=== PATIENT | male | born 1955 | race Caucasian/White ===

== ENCOUNTER 2021-01-03 08:12 | Outpatient (REF) | payer OTHER, SELFPAY ==
[2021-01-03 09:18] LABS: Hematocrit 44.6 % (42-52); Hemoglobin 14.6 g/dl (14.0-18.0); Mean Corpuscular HGB Conc 32.7 g/dl (31.0-36.0); Mean Corpuscular Hemoglobin 30.7 pg (27.0-33.0); Mean Corpuscular Volume 93.7 fL (80-98); Mean Platelet Volume 10.5 fL (9.4-12.4); Platelet Count 248 X10*3/uL (160-400); Red Blood Count 4.76 X10*6/uL (4.60-5.80); Red Cell Distribution Width 12.8 % (11.0-16.0); White Blood Count 5.1 X10*3/uL (4.8-10.8)
[2021-01-03 09:37] LABS: Alanine Aminotransferase 22 U/L (0-40); Alkaline Phosphatase 69 U/L (39-117); Anion Gap 9 (12-20); Aspartate Amino Transferase 24 U/L (5-37); Bilirubin Direct 0.3 mg/dL (0.0-0.5); Bilirubin Total 0.8 mg/dL (0.0-1.0); Blood Urea Nitrogen 30 mg/dL (9-16); Carbon Dioxide 31 mmol/L (22-29); Chloride 104 mmol/L (96-108); Cholesterol 175 mg/dL; Estimated Glomerular Filt Rate > 60; Glucose Random 100 mg/dL (60-115); HDL Cholesterol 81 mg/dL; LDL Cholesterol Calculated 85 mg/dl; Potassium 4.6 mmol/L (3.3-5.1); Sodium 139 mmol/L (135-145); Total Protein 6.1 g/dL (6.5-8.0); Triglycerides 48 mg/dL
== END 2021-01-03 08:13 | disposition home or self-care (01) ==
LOC: HO.LAB 08:12
PROVIDERS: PCP Internal Medicine; Visit Provider Internal Medicine
DX: E78.00 Pure hypercholesterolemia, unspecified (principal)
CPT/HCPCS: 36415; 80048; 80061; 80076; 84443; 85027

== ENCOUNTER 2021-05-28 07:06 | Outpatient (REF) | payer OTHER, SELFPAY ==
[2021-05-28 07:35] LABS: Hematocrit 46.5 % (42.0-52.0); Mean Corpuscular HGB Conc 32.3 g/dl (31.0-36.0); Mean Corpuscular Hemoglobin 30.1 pg (27.0-33.0); Mean Corpuscular Volume 93.4 fL (80.0-98.0); Mean Platelet Volume 10.3 fL (9.4-12.4); Platelet Count 269 X10*3/uL (160-400); Red Blood Count 4.98 X10*6/uL (4.60-5.80); Red Cell Distribution Width 13.2 % (11.0-16.0); White Blood Count 5.1 X10*3/uL (4.8-10.8)
[2021-05-28 07:58] LABS: Alanine Aminotransferase 24 U/L (0-40); Albumin Level 3.9 g/dL (3.5-5.0); Alkaline Phosphatase 64 U/L (39-117); Anion Gap 10 (12-20); Aspartate Amino Transferase 26 U/L (5-37); Bilirubin Direct 0.3 mg/dL (0.0-0.5); Bilirubin Total 0.6 mg/dL (0.0-1.0); Blood Urea Nitrogen 22 mg/dL (9-16); Calcium 9.7 mg/dL (8.4-10.2); Carbon Dioxide 32 mmol/L (22-29); Chloride 104 mmol/L (96-108); Cholesterol 191 mg/dL; Estimated Glomerular Filt Rate > 60; Glucose Random 108 mg/dL (60-115); HDL Cholesterol 79 mg/dL; LDL Cholesterol Calculated 103 mg/dl; Potassium 5.3 mmol/L (3.3-5.1); Sodium 141 mmol/L (135-145); Total Protein 6.3 g/dL (6.5-8.0); Triglycerides 48 mg/dL
[2021-05-28 08:18] LABS: Thyroid Stimulating Hormone 1.13 uIU/mL (0.32-4.0)
== END 2021-05-28 07:07 | disposition home or self-care (01) ==
LOC: HO.LAB 07:06
PROVIDERS: PCP Internal Medicine; Visit Provider Internal Medicine
DX: E78.00 Pure hypercholesterolemia, unspecified (principal); K21.9 Gastro-esophageal reflux disease without esophagitis
CPT/HCPCS: 36415; 80048; 80061; 80076; 84443; 85027

== ENCOUNTER 2021-10-03 07:13 | Outpatient (REF) | payer OTHER, SELFPAY ==
--- NOTE | ~2021-10-03 | XR_ITS ---
EXAMINATION: XR PELVIS CLINICAL INFORMATION: Hip pain. COMPARISON: None TECHNIQUE: AP view of the pelvis. FINDINGS: The bones and soft tissues are normal. No fracture. Sacroiliac and hip joints are normal. A tiny accessory ossification center seen lateral to the left acetabular roof. Pubic symphysis is normal. There are pelvic phleboliths. No abnormal soft tissue calcifications. XR/XR pelvis 1-2V IMPRESSION: Normal pelvis.
== END 2021-10-03 07:14 | disposition home or self-care (01) ==
LOC: HO.HOSX 07:13
PROVIDERS: Visit Provider Orthopaedic Surgery
DX: M70.70 Other bursitis of hip, unspecified hip (principal)
CPT/HCPCS: 72170

== ENCOUNTER 2021-10-29 07:19 | Outpatient (REF) | payer OTHER, SELFPAY ==
[2021-10-29 08:14] LABS: Hematocrit 46.9 % (42.0-52.0); Hemoglobin 15.3 g/dl (14.0-18.0); Mean Corpuscular HGB Conc 32.6 g/dl (31.0-36.0); Mean Corpuscular Hemoglobin 30.5 pg (27.0-33.0); Mean Corpuscular Volume 93.6 fL (80.0-98.0); Mean Platelet Volume 10.2 fL (9.4-12.4); Platelet Count 267 X10*3/uL (160-400); Red Blood Count 5.01 X10*6/uL (4.60-5.80); White Blood Count 4.6 X10*3/uL (4.8-10.8)
[2021-10-29 09:14] LABS: Alanine Aminotransferase 38 U/L (0-40); Albumin Level 4.3 g/dL (3.5-5.0); Alkaline Phosphatase 65 U/L (39-117); Anion Gap 12 (12-20); Aspartate Amino Transferase 51 U/L (5-37); Bilirubin Direct 0.5 mg/dL (0.0-0.5); Bilirubin Total 1.2 mg/dL (0.0-1.0); Blood Urea Nitrogen 23 mg/dL (9-16); Calcium 9.7 mg/dL (8.4-10.2); Carbon Dioxide 30 mmol/L (22-29); Chloride 103 mmol/L (96-108); Cholesterol 188 mg/dL; Estimated Glomerular Filt Rate > 60; Glucose Random 100 mg/dL (60-115); HDL Cholesterol 88 mg/dL; LDL Cholesterol Calculated 94 mg/dl; Potassium 4.7 mmol/L (3.3-5.1); Sodium 140 mmol/L (135-145); Total Protein 6.7 g/dL (6.5-8.0); Triglycerides 34 mg/dL
[2021-10-29 09:17] LABS: Thyroid Stimulating Hormone 0.53 uIU/mL (0.32-4.0)
== END 2021-10-29 07:20 | disposition home or self-care (01) ==
LOC: HO.LAB 07:19
PROVIDERS: PCP Internal Medicine; Visit Provider Internal Medicine
DX: E78.00 Pure hypercholesterolemia, unspecified (principal); K21.9 Gastro-esophageal reflux disease without esophagitis; K22.70 Barrett's esophagus without dysplasia
CPT/HCPCS: 36415; 80048; 80061; 80076; 84443; 85027

== ENCOUNTER 2021-11-30 07:27 | Day surgery (SDC) | payer OTHER, SELFPAY ==
--- NOTE | 2021-11-28 12:07 | P.CONAN_ITS ---
Documented by User: Antonieta Lewis NP 11/28/21 12:08 HPI - Anesthesia Eval Consult details Narrative: 66yo M for Upper Endoscopy PMFSH Active Problems Active Problems: All Active Problems (Updated 10/03/21 @ 15:16 by Brendon Lemus) Osteoarthritis of right hip (Acute) Ischial bursitis (Acute) GERD (gastroesophageal reflux disease) (Acute) Huitron's esophagus (Acute) Hypercholesterolemia (Acute) Past Medical History Medical History Huitron's esophagus GERD (gastroesophageal reflux disease) Hypercholesterolemia Family History Family History Mother No problems noted. Father No problems noted. 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 Cognitive needs: No Hearing needs: No Vision needs: Yes (glasses) Meds Allergies Allergy/AdvReac Type Severity Reaction Status Date / Time No Known Allergies Allergy Verified 10/03/21 14:54 Home Medications Medication Instructions Recorded Confirmed Last Taken Type multivitamin 1 tab PO DAILY 05/24/21 Unknown History Exam Exam Date and Time: November 28, 2021 1207 Pertinent Lab Results Pertinent Lab Results: Laboratory Tests 10/29/21 10/29/21 07:29 07:29 WBC 4.6 L Hgb 15.3 Hct 46.9 Plt Count 267 Sodium 140 Potassium 4.7 Chloride 103 Carbon Dioxide 30 H BUN 23 H Creatinine 1.12 Assessment and Plan Assessment Anesthesia Assessment: Chart Reviewed Documented by User: Nicole Petersen MD 11/30/21 09:00 [facility] Past Medical History Medical History Huitron's esophagus GERD (gastroesophageal reflux disease) Hypercholesterolemia Functional capacity: independent ambulation Family History Family History Mother No problems noted. Father No problems noted. Family history of problems with anesthesia: No Surgical History Surgical History History of esophagogastroduodenoscopy (EGD) History of tonsillectomy Hx of colonoscopy History of Problems with Anesthesia: No Social History Social History Housing: House Alcohol intake: current Alcohol intake frequency: 0-2 drinks per day Patient Tobacco Use Status: Never used Tobacco e-Cigarette/Vaping Use: Never Used Second Hand Smoke Exposure: Yes Use of substances other than those prescribed or required for medical reasons: No Are you DNR?: No Advance Directives: No Advance Directives Information Provided: Yes service: Yes Current occupational status: employed 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 Cognitive needs: No Hearing needs: No Vision needs: Yes (glasses) Meds Allergies Allergy/AdvReac Type Severity Reaction Status Date / Time No Known Allergies Allergy Verified 10/03/21 14:54 Home Medications Medication Instructions Recorded Confirmed Last Taken Type multivitamin 1 tab PO DAILY 05/24/21 Unknown History Exam Airway Mallampati Class: II TM Dist: >3cm Neck ROM: Full Heart: RRR Lungs: CTA Assessment and Plan Final Anesthetic Review Family History of Problems with Anesthesia: No History of Problems with Anesthesia: No ASA Class: II Final Preanesthetic Review: No Changes in Pt Med Stat, Meds/Allgs Chart Reviewed, Consent Obtained/Reviewed and Anes Risks/Benef Reviewed Patient Risk: Low Anesthetic Plan Anesthetic Plan: MAC: Disposition: Standard PACU
[2021-11-30 08:03] VITALS: BMI 19.8
[2021-11-30 08:07] VITALS: BP 124/74; PULSE 57; RESP 18; TEMP 36.2; O2SAT 98
[2021-11-30] MEDS: Lactated Ringers 1,000 ML 100 ML IVCONT (08:09)
[2021-11-30 09:10] VITALS: BP 99/63; PULSE 62; RESP 16; TEMP 36.2; O2SAT 99
--- NOTE | 2021-11-30 09:15 | PM.OP ---
Brief Operative Note Date of Service: 11/30/21 Pre-op diagnosis: Huitron's esophagus Post-op diagnosis: other (Same, small hiatal hernia) Procedure: EGD with biopsies Surgeon: Joseph Lopez Anesthesia: MAC Was an Hydrometeorology Teacher used for this Procedure?: No Estimated blood loss (mL): 2.0 Pathology: other (A. EG Junction at 40cm) Condition: stable Disposition: PACU
[2021-11-30 09:25] VITALS: BP 108/69; PULSE 57; RESP 16; TEMP 36.3; O2SAT 98
--- NOTE | 2021-11-30 09:51 | HO.POSTANES ---
Post Anesthesia Evaluation Post Anesthesia Evaluation Vital Signs: Vital Signs Temp Pulse Resp BP Pulse Ox O2 Del Method 11/30/21 09:25 97.3 F 57 16 108/69 98 Room Air 11/30/21 09:10 97.2 F 62 16 99/63 99 Room Air 11/30/21 08:07 97.2 F 57 18 124/74 98 Room Air Anesthesia: Monitored Mental Status: Awake Pain Control: Satisfactory Nausea/Vomiting: None Hydration: Adequate Anesthesia-Related Issues: No Anes. Related Issues
--- NOTE | 2021-11-30 20:58 | OP_ITS ---
SURGEON: Joseph Lopez MD INDICATIONS: The patient presents for evaluation of history of Huitron's esophagus. Full consent has been obtained from him for this, including risks of bleeding and perforation. PREOPERATIVE DIAGNOSIS: History of Huitron's esophagus. POSTOPERATIVE DIAGNOSIS: PROCEDURE PERFORMED: Esophagogastroduodenoscopy with biopsies. ESTIMATED BLOOD LOSS: COMPLICATIONS: ANESTHESIA: Monitored anesthesia care. ASSISTANTS: SPECIMENS: POSTOPERATIVE DIAGNOSES: History of Huitron's esophagus, minimal hiatal hernia. DESCRIPTION OF PROCEDURE: The patient was placed in the left lateral decubitus position. The Olympus video gastroscope was passed in the posterior oropharynx and upper esophagus under direct vision. The scope was passed slowly into the distal esophagus. The gastroesophageal junction appeared at 40 cm. There was some very minimal irregularity with possibly small areas of Huitron's mucosa. There was no esophagitis nor mass. The scope entered into the stomach. There was a minimal hiatal hernia. The scope was advanced to the pylorus and the duodenum was cannulated to the descending portion. The duodenum including the bulb appeared normal without mass or ulceration. The scope was withdrawn back in the stomach. The gastric antrum and body appeared normal with good peristalsis. The scope was retroflexed visualizing the proximal stomach carefully, which appeared normal, without any sign of mass or ulceration. The scope was straightened and withdrawn back into the esophagus. Biopsies were obtained at the EG junction at 40 cm. Proximal to this, the esophageal mucosa appeared normal. The scope was withdrawn from the patient. He tolerated the procedure well and was returned to the recovery area in stable condition. IMPRESSION: Minimal hiatal hernia, history of Huitron's esophagus. PLAN: The results of the biopsies will be checked. I would recommend a repeat upper endoscopy in 3 years. At this point he is doing well off his omeprazole and I advised him that he could remain off it. He can just use that or any acid suppression on a p.r.n. basis. However, I did advise him that if the acid reflux becomes more frequent, he could then simply resume the omeprazole. He will be due for a followup screening colonoscopy in 2023 as well. MD ELBA Guthrie/LINDA / [id number] ROHINI
== END 2021-11-30 09:49 | disposition home or self-care (01) ==
PROVIDERS: PCP Internal Medicine; Visit Provider Internal Medicine
PROC: 0DJ08ZZ Inspection of Upper Intestinal Tract, Via Natural or Artificial Opening Endoscopic (ICD-10-PCS; CPT 43235; principal; 2021-11-30 08:30)
DX: K22.70 Barrett's esophagus without dysplasia (principal); K21.9 Gastro-esophageal reflux disease without esophagitis; K44.9 Diaphragmatic hernia without obstruction or gangrene; E78.00 Pure hypercholesterolemia, unspecified; Z79.899 Other long term (current) drug therapy
CPT/HCPCS: 43239; 88305

== ENCOUNTER 2022-07-08 12:19 | Emergency (ER) | payer MEDICARE, OTHER, SELFPAY ==
--- NOTE | ~2022-07-08 | XR_ITS ---
EXAMINATION: XR CHEST CLINICAL INFORMATION: Left-sided rib pain COMPARISON: X-ray 03/12/2013 TECHNIQUE: 2 views of the chest were obtained. FINDINGS: The cardiomediastinal silhouette is within normal limits. The lungs are well expanded. There is no focal consolidation, edema, or effusion. No pneumothorax. No acute displaced rib fractures identified. Thoracic spine degeneration. XR/XR chest 2V IMPRESSION: No evidence of acute cardiopulmonary process.
[2022-07-08 12:25] VITALS: BP 140/81; PULSE 67; RESP 18; TEMP 36.4; O2SAT 99; BMI 19.8
--- NOTE | 2022-07-08 12:26 | ED.GENADULT ---
HPI - General Adult General Chief complaint: General Medical <SUDHA Layton - Last Filed: 07/08/22 12:26> Stated complaint: Pain in left side of ribs <SUDHA Layton - Last Filed: 07/08/22 12:26> Time Seen by Provider: 07/08/22 13:33 <SUDHA Layton - Last Filed: 07/08/22 12:26> Source: patient <Ebonie Rebolledo KE Loo - Last Filed: 07/08/22 14:45> Mode of arrival: ambulatory <Ebonie Loo CNP - Last Filed: 07/08/22 14:45> Limitations: no limitations <Ebonie Loo CNP - Last Filed: 07/08/22 14:45> History of Present Illness HPI narrative: Patient is a 67-year-old male who presents to emergency department for evaluation of rib pain. 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 Reports pain to be localized to the left lower/anterior rib region described as aching in nature, and has tenderness upon palpation to light touch.. It is made worse with deep breathing and particular movement. He denies any recent URI symptoms or sick contacts. Denies upper/anterior chest pain, shortness of breath, difficulty breathing, abdominal pain, nausea, vomiting, diarrhea, constipation flank pain. Denies personal history of DVT/PE, lower extremity redness swelling, recent surgery or immobilization. <Ebonie Loo CNP - Last Filed: 07/08/22 14:45> Related Data Home medications: Home Medications Medication Instructions Recorded Confirmed multivitamin 1 tab PO DAILY 05/24/21 Previous Rx's Medication Instructions Recorded simvastatin 40 mg tablet 40 mg PO DAILY #90 tabs 11/17/21 omeprazole 20 mg capsule,delayed 20 mg PO DAILY #90 caps 01/14/22 release <SUDHA Layton - Last Filed: 07/08/22 12:26> Allergies/adverse reactions: Allergies Allergy/AdvReac Type Severity Reaction Status Date / Time No Known Allergies Allergy Verified 10/03/21 14:54 <SUDHA Layton - Last Filed: 07/08/22 12:26> Review of Systems Review of Systems: Yes all other systems are reviewed and are negative <Ebonie Loo CNP - Last Filed: 07/08/22 14:45> [facility] Past Medical History Attestation statement: The following information was validated with the patient. <Ebonie Loo CNP - Last Filed: 07/08/22 14:45> Source: old records reviewed <Ebonie Loo CNP - Last Filed: 07/08/22 14:45> Medical History: Medical History Huitron's esophagus GERD (gastroesophageal reflux disease) Hypercholesterolemia <SUDHA Layton - Last Filed: 07/08/22 12:26> Surgical History: Surgical History History of esophagogastroduodenoscopy (EGD) History of tonsillectomy Hx of colonoscopy <SUDHA Layton - Last Filed: 07/08/22 12:26> Family History Family History: Family History Mother No problems noted. Father No problems noted. 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 Cognitive needs: No Hearing needs: No Vision needs: Yes (glasses) <SUDHA Layton - Last Filed: 07/08/22 12:26> Physical Exam ED Vital Signs: Vital Signs - 24 hr 07/08/22 12:25 Temperature 97.5 F Pulse Rate 67 Respiratory Rate 18 Blood Pressure 140/81 H Pulse Oximetry 99 Oxygen Delivery Method Room Air BMI result Body Mass Index 19.8 <SUDHA Layton - Last Filed: 07/08/22 12:26> Vital Signs - 24 hr 07/08/22 12:25 Temperature 97.5 F Pulse Rate 67 Respiratory Rate 18 Blood Pressure 140/81 H Pulse Oximetry 99 Oxygen Delivery Method Room Air BMI result Body Mass Index 19.8 <Ebonie Loo CNP - Last Filed: 07/08/22 14:45> Course Course Course Narrative: RME performed by Tresa Kent PA-C. Patient is a 67 year old male presenting to the emergency department with left sided rib pain. Patient states that this pain is worse with deep breathing and movement. Labs, EKG, and imaging ordered. Patient placed back in the waiting room pending results and room availability. <SUDHA Layton - Last Filed: 07/08/22 12:26> Reevaluation(s) Reevaluation #1: CBC is overall unremarkable. CMP is overall unremarkable, elevated BUN though this is consistent with baseline. Troponin <3.5. EKG revealing normal sinus rhythm, ventricular rate of 61, QTC 428, normal P wave, normal QRS complex, no ST elevation, no ST depression, no T-wave inversion, no prior EKGs available for comparison. At this time does not appear consistent with ACS. I have a lower suspicion for pulmonary embolism based history and physical examination. COVID-19 testing is negative. Chest x-ray reveals no acute cardiopulmonary process. At this time, symptoms appear most consistent muscular strain of the chest reviewed these findings patient, discussed plan of care for discharge home with Lidoderm patch, use anti-inflammatory, and outpatient follow-up primary care provider within the next 3 days. We reviewed worrisome signs and symptoms warrant re-evaluation the emergency department. All questions were answered. Stable for discharge. <Ebonie Loo CNP - Last Filed: 07/08/22 14:45> Time: 14:45 <Ebonie Loo CNP - Last Filed: 07/08/22 14:45> Medical Decision Making Medical Decision Making MDM Narrative: Patient is a 67-year-old male with past medical history of Huitron's esophagus, GERD, hypercholesterolemia who presents emergency department for evaluation of left lateral chest wall pain. At the time of my examination he is overall well appearing. Nontoxic. Vitals are stable without tachycardia, tachypnea, or hypoxia. At this time I have a low suspicion for ACS/PE/pneumonia. However given age and symptoms, Will obtain CBC to evaluate for leukocytosis/ anemia, CMP and lipase to evaluate for abnormal electrolytes /abnormal renal function/ abnormal hepatic/biliary function, EKG and troponin to evaluate for ischemia/ACS. Chest x-ray to evaluate for consolidation/ infiltrate/ mass/ pulmonary congestion. <Ebonie Loo CNP - Last Filed: 07/08/22 14:45> Differential Diagnosis Differential Diagnoses: The differential diagnosis associated with the presentation includes (ACS, PE, pneumonia, costochondritis, gastritis) <Ebonie Loo CNP - Last Filed: 07/08/22 14:45> Lab Data MDM Lab Attestation statement: I reviewed the patient's lab results. <Ebonie Loo CNP - Last Filed: 07/08/22 14:45> Result Diagrams: 07/08/22 12:49 07/08/22 12:49 <SUDHA Layton - Last Filed: 07/08/22 12:26> Labs: Lab Results 07/08/22 07/08/22 07/08/22 Range/Units 12:45 12:49 12:49 WBC 6.6 (4.8-10.8) X10*3/uL RBC 4.69 (4.60-5.80) X10*6/uL Hgb 14.2 (14.0-18.0) g/dl Hct 43.6 (42.0-52.0) % MCV 93.0 (80.0-98.0) fL MCH 30.3 (27.0-33.0) pg MCHC 32.6 (31.0-36.0) g/dl RDW 13.2 (11.0-16.0) % Plt Count 244 (160-400) X10*3/uL MPV 9.7 (9.4-12.4) fL Immature Gran % (Auto) 0.3 (0.0-0.4) % Neut % (Auto) 74.5 H (45-73) % Lymph % (Auto) 15.1 L (20-40) % [place] % (Auto) 8.1 (2-11) % Eos % (Auto) 1.5 (0-4) % Baso % (Auto) 0.5 (0-2) % Lymph # (Auto) 1.0 L (1.2-4.9) X10*3/uL [place] # (Auto) 0.5 (0.1-1.2) X10*3/uL Eos # (Auto) 0.1 (0.0-0.4) X10*3/uL Baso # (Auto) 0.0 (0.0-0.2) X10*3/uL Abs Immat Gran (auto) 0.02 (0.00-0.03) X10*3/uL Absolute Neuts (auto) 4.9 (2.0-8.3) x10*3/uL Absolute Nucleated RBC 0.000 (0.0-0.012) X10*3/uL Nucleated RBC % (auto) 0.0 (0.0-0.2) /100WBC Sodium 139 (135-145) mmol/L Potassium 4.7 (3.3-5.1) mmol/L Chloride 105 (96-108) mmol/L Carbon Dioxide 29 (22-29) mmol/L Anion Gap 10 L (12-20) BUN 27 H (9-16) mg/dL Creatinine 1.04 (0.5-1.4) mg/dL Estim Creat Clear Calc 68.1 Estimated GFR > 60 Random Glucose 120 H (60-115) mg/dL Calcium 8.9 D (8.4-10.2) mg/dL Magnesium 1.9 (1.6-2.6) mg/dL Total Bilirubin 0.8 (0.0-1.0) mg/dL AST 25 (5-37) U/L ALT 22 (0-40) U/L Alkaline Phosphatase 58 (39-117) U/L Troponin I High Sens (<3.5-35.0) ng/L B-Natriuretic Peptide (<100) pg/mL Total Protein 5.9 L (6.5-8.0) g/dL Albumin 3.9 (3.5-5.0) g/dL COVID-19 (SILVIA) Negative (Negative) COVID-19 Clin Com See Note 07/08/22 07/08/22 Range/Units 12:49 12:49 WBC (4.8-10.8) X10*3/uL RBC (4.60-5.80) X10*6/uL Hgb (14.0-18.0) g/dl Hct (42.0-52.0) % MCV (80.0-98.0) fL MCH (27.0-33.0) pg MCHC (31.0-36.0) g/dl RDW (11.0-16.0) % Plt Count (160-400) X10*3/uL MPV (9.4-12.4) fL Immature Gran % (Auto) (0.0-0.4) % Neut % (Auto) (45-73) % Lymph % (Auto) (20-40) % [place] % (Auto) (2-11) % Eos % (Auto) (0-4) % Baso % (Auto) (0-2) % Lymph # (Auto) (1.2-4.9) X10*3/uL [place] # (Auto) (0.1-1.2) X10*3/uL Eos # (Auto) (0.0-0.4) X10*3/uL Baso # (Auto) (0.0-0.2) X10*3/uL Abs Immat Gran (auto) (0.00-0.03) X10*3/uL Absolute Neuts (auto) (2.0-8.3) x10*3/uL Absolute Nucleated RBC (0.0-0.012) X10*3/uL Nucleated RBC % (auto) (0.0-0.2) /100WBC Sodium (135-145) mmol/L Potassium (3.3-5.1) mmol/L Chloride (96-108) mmol/L Carbon Dioxide (22-29) mmol/L Anion Gap (12-20) BUN (9-16) mg/dL Creatinine (0.5-1.4) mg/dL Estim Creat Clear Calc Estimated GFR Random Glucose (60-115) mg/dL Calcium (8.4-10.2) mg/dL Magnesium (1.6-2.6) mg/dL Total Bilirubin (0.0-1.0) mg/dL AST (5-37) U/L ALT (0-40) U/L Alkaline Phosphatase (39-117) U/L Troponin I High Sens < 3.5 (<3.5-35.0) ng/L B-Natriuretic Peptide 31 (<100) pg/mL Total Protein (6.5-8.0) g/dL Albumin (3.5-5.0) g/dL COVID-19 (SILVIA) (Negative) COVID-19 Clin Com <SUDHA Layton - Last Filed: 07/08/22 12:26> Lab Results 07/08/22 07/08/22 07/08/22 Range/Units 12:45 12:49 12:49 WBC 6.6 (4.8-10.8) X10*3/uL RBC 4.69 (4.60-5.80) X10*6/uL Hgb 14.2 (14.0-18.0) g/dl Hct 43.6 (42.0-52.0) % MCV 93.0 (80.0-98.0) fL MCH 30.3 (27.0-33.0) pg MCHC 32.6 (31.0-36.0) g/dl RDW 13.2 (11.0-16.0) % Plt Count 244 (160-400) X10*3/uL MPV 9.7 (9.4-12.4) fL Immature Gran % (Auto) 0.3 (0.0-0.4) % Neut % (Auto) 74.5 H (45-73) % Lymph % (Auto) 15.1 L (20-40) % [place] % (Auto) 8.1 (2-11) % Eos % (Auto) 1.5 (0-4) % Baso % (Auto) 0.5 (0-2) % Lymph # (Auto) 1.0 L (1.2-4.9) X10*3/uL [place] # (Auto) 0.5 (0.1-1.2) X10*3/uL Eos # (Auto) 0.1 (0.0-0.4) X10*3/uL Baso # (Auto) 0.0 (0.0-0.2) X10*3/uL Abs Immat Gran (auto) 0.02 (0.00-0.03) X10*3/uL Absolute Neuts (auto) 4.9 (2.0-8.3) x10*3/uL Absolute Nucleated RBC 0.000 (0.0-0.012) X10*3/uL Nucleated RBC % (auto) 0.0 (0.0-0.2) /100WBC Sodium 139 (135-145) mmol/L Potassium 4.7 (3.3-5.1) mmol/L Chloride 105 (96-108) mmol/L Carbon Dioxide 29 (22-29) mmol/L Anion Gap 10 L (12-20) BUN 27 H (9-16) mg/dL Creatinine 1.04 (0.5-1.4) mg/dL Estim Creat Clear Calc 68.1 Estimated GFR > 60 Random Glucose 120 H (60-115) mg/dL Calcium 8.9 D (8.4-10.2) mg/dL Magnesium 1.9 (1.6-2.6) mg/dL Total Bilirubin 0.8 (0.0-1.0) mg/dL AST 25 (5-37) U/L ALT 22 (0-40) U/L Alkaline Phosphatase 58 (39-117) U/L Troponin I High Sens (<3.5-35.0) ng/L B-Natriuretic Peptide (<100) pg/mL Total Protein 5.9 L (6.5-8.0) g/dL Albumin 3.9 (3.5-5.0) g/dL COVID-19 (SILVIA) Negative (Negative) COVID-19 Clin Com See Note 07/08/22 07/08/22 Range/Units 12:49 12:49 WBC (4.8-10.8) X10*3/uL RBC (4.60-5.80) X10*6/uL Hgb (14.0-18.0) g/dl Hct (42.0-52.0) % MCV (80.0-98.0) fL MCH (27.0-33.0) pg MCHC (31.0-36.0) g/dl RDW (11.0-16.0) % Plt Count (160-400) X10*3/uL MPV (9.4-12.4) fL Immature Gran % (Auto) (0.0-0.4) % Neut % (Auto) (45-73) % Lymph % (Auto) (20-40) % [place] % (Auto) (2-11) % Eos % (Auto) (0-4) % Baso % (Auto) (0-2) % Lymph # (Auto) (1.2-4.9) X10*3/uL [place] # (Auto) (0.1-1.2) X10*3/uL Eos # (Auto) (0.0-0.4) X10*3/uL Baso # (Auto) (0.0-0.2) X10*3/uL Abs Immat Gran (auto) (0.00-0.03) X10*3/uL Absolute Neuts (auto) (2.0-8.3) x10*3/uL Absolute Nucleated RBC (0.0-0.012) X10*3/uL Nucleated RBC % (auto) (0.0-0.2) /100WBC Sodium (135-145) mmol/L Potassium (3.3-5.1) mmol/L Chloride (96-108) mmol/L Carbon Dioxide (22-29) mmol/L Anion Gap (12-20) BUN (9-16) mg/dL Creatinine (0.5-1.4) mg/dL Estim Creat Clear Calc Estimated GFR Random Glucose (60-115) mg/dL Calcium (8.4-10.2) mg/dL Magnesium (1.6-2.6) mg/dL Total Bilirubin (0.0-1.0) mg/dL AST (5-37) U/L ALT (0-40) U/L Alkaline Phosphatase (39-117) U/L Troponin I High Sens < 3.5 (<3.5-35.0) ng/L B-Natriuretic Peptide 31 (<100) pg/mL Total Protein (6.5-8.0) g/dL Albumin (3.5-5.0) g/dL COVID-19 (SILVIA) (Negative) COVID-19 Clin Com <Ebonie Loo CNP - Last Filed: 07/08/22 14:45> Independent Interpretation I performed an independent interpretation of an: Plain X-Ray (I have personally interpreted x-ray imaging and agree with radiologist impression) <Ebonie Loo CNP - Last Filed: 07/08/22 14:45> Radiology Impression Discussion of test interpretation with radiology: I have reviewed the radiologist's reading. <Ebonie Loo CNP - Last Filed: 07/08/22 14:45> Radiologist Impression: XR/XR chest 2V IMPRESSION: No evidence of acute cardiopulmonary process. <Ebonie Loo CNP - Last Filed: 07/08/22 14:45> Discharge Plan Discharge Clinical Impression: Acute costochondritis <SUDHA Layton - Last Filed: 07/08/22 12:26> Patient Disposition: Home, Self-Care <SUDHA Layton - Last Filed: 07/08/22 12:26> Instructions: Costochondritis (ED), Thoracic Pain (ED) <SUDHA Layton - Last Filed: 07/08/22 12:26> Additional Instructions: As discussed, please be sure to rest over the next few days. Apply ice/heat to the area for 10-15 minutes 3-4 times daily. A prescription for Lidoderm patches were sent to your pharmacy, UA places over the area of most pain, however, please be sure not to apply heating pad over the Lidoderm patch You can take ibuprofen 200 mg, 3 tablets (600mg) every 6-8 hours as needed for pain, in addition to Tylenol 500 mg, 2 tablets (1,000mg) every 4-6 hours as needed for pain, but not to exceed 3 doses daily (3,000mg).? Please contact your primary care provider and arrange for a follow-up visit within 3 days. You may return back to the emergency department with any new or worsening symptoms or concerns. <SUDHA Layton - Last Filed: 07/08/22 12:26> Prescriptions: No Action simvastatin 40 mg tablet 40 mg PO DAILY Qty: 90 1RF omeprazole 20 mg capsule,delayed release(DR/EC) 20 mg PO DAILY Qty: 90 1RF multivitamin Tablet 1 tab PO DAILY <SUDHA Layton - Last Filed: 07/08/22 12:26> Referrals: Physician,Unknown J [Primary Care Provider] - <SUDHA Layton - Last Filed: 07/08/22 12:26>
--- NOTE | 2022-07-08 12:27 | ECG_ITS ---
Test Reason : CHEST PAIN Blood Pressure : / mmHG Vent. Rate : 061 BPM Atrial Rate : 061 BPM P-R Int : 178 ms QRS Dur : 094 ms QT Int : 426 ms P-R-T Axes : 067 026 055 degrees QTc Int : 428 ms Normal sinus rhythm Normal ECG No previous ECGs available Referred By: Tresa Kent Electronically Signed By:KASEY MELCHOR
[2022-07-08 12:56] LABS: MANUAL DIFF FLAG NO
[2022-07-08 13:04] LABS: Basophils Percent Auto 0.5 % (0-2); Eosinophils Absolute Auto 0.1 X10*3/uL (0.0-0.4); Eosinophils Percent Auto 1.5 % (0-4); Hematocrit 43.6 % (42.0-52.0); Hemoglobin 14.2 g/dl (14.0-18.0); Imm Gran Abs Auto 0.02 X10*3/uL (0.00-0.03); Imm Gran Pct Auto 0.3 % (0.0-0.4); Lymphocytes Percent Auto 15.1 % (20-40); Mean Corpuscular HGB Conc 32.6 g/dl (31.0-36.0); Mean Corpuscular Hemoglobin 30.3 pg (27.0-33.0); Mean Platelet Volume 9.7 fL (9.4-12.4); Monocytes Absolute Auto 0.5 X10*3/uL (0.1-1.2); Monocytes Percent Auto 8.1 % (2-11); Neutrophils Absolute Auto 4.9 x10*3/uL (2.0-8.3); Neutrophils Percent Auto 74.5 % (45-73); Platelet Count 244 X10*3/uL (160-400); Red Blood Count 4.69 X10*6/uL (4.60-5.80); Red Cell Distribution Width 13.2 % (11.0-16.0); White Blood Count 6.6 X10*3/uL (4.8-10.8)
[2022-07-08 13:17] LABS: Alanine Aminotransferase 22 U/L (0-40); Albumin Level 3.9 g/dL (3.5-5.0); Alkaline Phosphatase 58 U/L (39-117); Anion Gap 10 (12-20); Aspartate Amino Transferase 25 U/L (5-37); Bilirubin Total 0.8 mg/dL (0.0-1.0); Blood Urea Nitrogen 27 mg/dL (9-16); Calcium 8.9 mg/dL (8.4-10.2); Carbon Dioxide 29 mmol/L (22-29); Chloride 105 mmol/L (96-108); Creatinine Clr Calc Pharmacy 68.1; Estimated Glomerular Filt Rate > 60; Glucose Random 120 mg/dL (60-115); Magnesium 1.9 mg/dL (1.6-2.6); Potassium 4.7 mmol/L (3.3-5.1); Sodium 139 mmol/L (135-145); Total Protein 5.9 g/dL (6.5-8.0)
[2022-07-08 13:18] LABS: COVID-19 Test Negative (Negative); IDNOW Serial# 6674DD1D
[2022-07-08 13:23] LABS: B Type Natriuretic Peptide 31 pg/mL (<100)
[2022-07-08 13:24] LABS: Troponin-I High Sensitivity < 3.5 ng/L (<3.5-35.0)
== END 2022-07-08 15:47 | disposition home or self-care (01) ==
PROVIDERS: Physician Assistant Medical; Emergency Provider Emergency Medicine
DX: M94.0 Chondrocostal junction syndrome [Tietze] (principal); Z20.822 Contact with and (suspected) exposure to COVID-19; E78.00 Pure hypercholesterolemia, unspecified; Z79.02 Long term (current) use of antithrombotics/antiplatelets; Z79.899 Other long term (current) drug therapy
CPT/HCPCS: 36415; 71046; 80053; 83735; 83880; 84484; 85025; 87635; 93005; 99283; 99284

== ENCOUNTER 2022-07-29 07:31 | Outpatient (REF) | payer MEDICARE, SELFPAY ==
[2022-07-29 09:23] LABS: Cholesterol 199 mg/dL; HDL Cholesterol 71 mg/dL; LDL Cholesterol Calculated 119 mg/dl; Triglycerides 46 mg/dL
== END 2022-07-29 07:32 | disposition home or self-care (01) ==
LOC: HO.LAB 07:31
PROVIDERS: PCP Internal Medicine; Visit Provider Nurse Practitioner Family
DX: E78.00 Pure hypercholesterolemia, unspecified (principal)
CPT/HCPCS: 36415; 80061

== ENCOUNTER 2022-08-16 08:47 | Outpatient (REF) | payer MEDICARE, OTHER, SELFPAY ==
--- NOTE | ~2022-08-16 | US_ITS ---
EXAMINATION: US ABDOMEN LIMITED CLINICAL INFORMATION: Unspecified abdominal pain. COMPARISON: Ultrasound abdomen complete 06/11/2018. TECHNIQUE: Real-time imaging of the upper abdominal viscera. FINDINGS: PANCREAS: Normal. LEFT KIDNEY: Normal. No hydronephrosis. No renal calculi or focal parenchymal lesions. The kidney measures 9.9 cm in maximum dimension. SPLEEN: Normal. The spleen measures 7.0 cm in maximum dimension. ADDITIONAL FINDINGS: Within the left lower quadrant, a 1.2 x 0.7 x 1.37 reniform lymph node is seen. This shows poor corticomedullary differentiation. US/US abdomen limited IMPRESSION: A mildly enlarged left lower quadrant lymph node is seen. This is a nonspecific finding, which should be managed on a clinical basis. If of continued clinical concern, this can be further evaluated with dedicated CT.
== END 2022-08-16 08:48 | disposition home or self-care (01) ==
LOC: HO.US 08:47
PROVIDERS: PCP Internal Medicine; Visit Provider Nurse Practitioner Family
DX: R10.9 Unspecified abdominal pain (principal)
CPT/HCPCS: 76705

== ENCOUNTER 2022-10-05 13:21 | Outpatient (REF) | payer MEDICARE, SELFPAY ==
[2022-10-05 14:02] LABS: Hematocrit 41.5 % (42.0-52.0); Hemoglobin 13.5 g/dl (14.0-18.0); Mean Corpuscular HGB Conc 32.5 g/dl (31.0-36.0); Mean Corpuscular Hemoglobin 30.1 pg (27.0-33.0); Mean Corpuscular Volume 92.6 fL (80.0-98.0); Mean Platelet Volume 10.2 fL (9.4-12.4); Platelet Count 241 X10*3/uL (160-400); Red Blood Count 4.48 X10*6/uL (4.60-5.80); Red Cell Distribution Width 13.5 % (11.0-16.0); White Blood Count 4.7 X10*3/uL (4.8-10.8)
[2022-10-05 14:53] LABS: Anion Gap 12 (12-20); Blood Urea Nitrogen 20 mg/dL (9-16); Calcium 9.2 mg/dL (8.4-10.2); Carbon Dioxide 29 mmol/L (22-29); Chloride 105 mmol/L (96-108); Estimated Glomerular Filt Rate > 60; Glucose Random 79 mg/dL (60-115); Potassium 4.4 mmol/L (3.3-5.1); Sodium 142 mmol/L (135-145)
== END 2022-10-05 13:22 | disposition home or self-care (01) ==
LOC: HO.LAB 13:21
PROVIDERS: PCP Internal Medicine; Visit Provider Internal Medicine
DX: E78.00 Pure hypercholesterolemia, unspecified (principal)
CPT/HCPCS: 36415; 80048; 85027

== ENCOUNTER 2022-10-10 09:12 | Outpatient (REF) | payer MEDICARE, OTHER, SELFPAY ==
--- NOTE | ~2022-10-10 | CT_ITS ---
EXAMINATION: CT ABDOMEN AND PELVIS WITH CONTRAST CLINICAL INFORMATION: Abdominal pain. COMPARISON: Ultrasound abdomen limited 08/16/2022. TECHNIQUE: Multidetector volumetric images were obtained from the superior aspect of the liver through the pubic symphysis following administration 85 mL of Omnipaque 350 intravenous contrast. Sagittal and coronal reformatted images were obtained on the technologist's workstation. Oral contrast: No This CT examination was performed using dose optimization techniques as appropriate, variously including the following: *Automated exposure control *Adjustment of mA and/or kV according to patient size (this includes techniques or standardized protocols for targeted exams where dose is matched to indication/reason for exam; i.e. extremities or head) *Use of iterative reconstruction technique DLP: 267 mGy-cm FINDINGS: LUNG BASES: Patchy atelectatic changes seen right middle lobe. The lung bases are clear. LIVER, GALLBLADDER, AND BILIARY TREE: The liver is normal in size, shape, and attenuation. No focal hepatic lesion or biliary ductal dilatation is present. The gallbladder is unremarkable with no evidence of radiopaque gallstones, gallbladder wall thickening, or obvious pericholecystic inflammatory changes. PANCREAS: Unremarkable. SPLEEN: Unremarkable. ADRENAL GLANDS: Unremarkable. KIDNEYS AND URETERS: The kidneys are normal in size, shape, and attenuation. No hydronephrosis, hydroureter, or calculi seen. No perinephric stranding. BLADDER: Unremarkable. GASTROINTESTINAL TRACT: Scattered stool, oral contrast and gas is seen throughout the colon without distention. The small bowel loops are normal caliber. Appendix is not visualized. No free air or free fluid seen. ABDOMINAL WALL: No significant hernia is appreciated. LYMPH NODES: Normal. VASCULAR: Unremarkable. PELVIC VISCERA: Unremarkable. OSSEOUS STRUCTURES: There are degenerative disc changes with vacuum disc phenomena L4-L5 disc level. No aggressive lytic or sclerotic process seen. CT/CT abdomen pelvis w IV con IMPRESSION: 1. No acute intra-abdominal process seen. 2. Mild constipation. Fleischner guidelines were followed.
[2022-10-10] MEDS: Barium Sulfate Oral (Mocha) 450 ML ORAL.SUSP 900 ML PO (12:11)
[2022-10-10] MEDS: iohexoL 350 MG/ML 100 ML INFUS..BTL IV (12:12)
== END 2022-10-10 09:13 | disposition home or self-care (01) ==
LOC: HO.CT 09:12
PROVIDERS: PCP Internal Medicine; Visit Provider Internal Medicine
DX: R10.9 Unspecified abdominal pain (principal)
CPT/HCPCS: 74177; Q9967

== ENCOUNTER 2022-10-19 12:26 | Outpatient (REF) | payer MEDICARE, SELFPAY ==
[2022-10-19 14:21] LABS: Prostate Specific Antigen 1.52 ng/mL (<0.05-4.0)
== END 2022-10-19 12:27 | disposition home or self-care (01) ==
LOC: HO.LAB 12:26
PROVIDERS: PCP Internal Medicine; Visit Provider Nurse Practitioner Family
DX: Z12.5 Encounter for screening for malignant neoplasm of prostate (principal)
CPT/HCPCS: 36415; 84153

== ENCOUNTER 2023-10-17 09:45 | Outpatient (AMB) | payer MEDICARE, SELFPAY ==
--- NOTE | 2023-10-17 09:52 | A.OFFPC_ITS ---
Vital Signs 10/17/23 09:54 Height 6 ft 1 in Weight 149 lb 2 oz BMI 19.7 BP 120/70 Blood Pressure Location Lt brachial Position Sitting Pulse 72 Pulse Source Pulse Oximeter Pulse Oximetry (%) 100 Oxygen Delivery Method Room Air Intake Visit Reasons: PE Intake Note: Patient is here today for a physical. Pt recently diagnose with Shingles was seen at urgent care. Has FMLA forms that needs to be fill out. Fountain Operator Required: No Biomass Plant Manager: Not Required per policy Accompanied by: Self / Same As Patient Allergies No Known Allergies Allergy (Verified 10/18/23 08:44) Medication List - Last Reconciled 10/17/23 by Buddy Nair MD multivitamin 1 tab PO DAILY simvastatin 40 mg PO DAILY valacyclovir 1,000 mg PO TID Tobacco use date assessed: 10/17/23 Fall risk assessment: No Falls in past year Last assessed Fall Risk: 10/17/23 Dental Screening Dental Screen Date: 10/17/23 Did you have a dental visit in the last 12 months?: Yes Did you have a dental problem in the last 6 months where you did not have access to dental care?: No Was dental information given to patient?: Patient has dentist HPI PE HPI Details 68-year-old male presents to the office requesting an annual physical. In addition, patient wishes to discuss his recent outbreak with herpes zoster infection. Patient had a rash on his chest and was diagnosed with herpes zoster. Valtrex was provided to him at the walk-in clinic. Patient is complaining of burning sensation in the area and discomfort. Clothing on the rash continues to irritate the area. No new blisters are seen. [facility] Medical History (Updated 10/18/23 @ 08:49 by Buddy Nair MD) Post herpetic neuralgia Huitron's esophagus GERD (gastroesophageal reflux disease) Hypercholesterolemia Surgical History Hx of colonoscopy History of esophagogastroduodenoscopy (EGD) History of tonsillectomy Family History Mother No problems noted. Father No problems noted. 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 1. Little interest or pleasure in doing things: not at all 2. Feeling down, depressed, or hopeless: not at all 3. Trouble falling or staying asleep, or sleeping too much: not at all 4. Feeling tired or having little energy: not at all 5. Poor appetite or overeating: not at all 6. Feeling bad about yourself - or that you are a failure or have let yourself or your family down: not at all 7. Trouble concentrating on things, such as reading the newspaper or watching television: not at all 8. Moving or speaking so slowly that other people could have noticed. Or the opposite - being so fidgety or restless that you have been moving around a lot more than usual: not at all 9. Thoughts that you would be better off or of hurting yourself in some way: not at all Total score: 0 Depression Screening Interpretation: Negative Depression Screening Done: Yes Source: Developed by Drs. Joseph Morris, Sruthi Cary, León Avila and colleagues, with an educational catalino from [employer]. Thrive Questionnaire Date Thrive assessed: 10/17/23 I am a: Patient What is your living situation today?: I have a steady place to live Within the past 12 months, did the food you bought not last and you didn't have the money to get more?: Never true Within the past 12 months, did you worry whether your food would run out before you got money to buy more?: Never true Do you have trouble paying for medicines?: No Do you have trouble getting transportation to medical appointments?: No Do you have trouble paying your heating and electricity bill?: No Do you have trouble taking care of your child, family member or friend?: No Do you have trouble with day-to-day activities such as bathing, preparing meals, shopping, managing finances, etc.?: No Are you currently unemployed and looking for a job?: No Are you interested in more education?: No Currently or been in a relationship where the following occur: no concerns reported THRIVE Score: 0 AUDIT C Alcohol Use Questionnaire (AUDIT-C) 1. How often do you have a drink containing alcohol?: 2-3 times a week 2. How many drinks containing alcohol do you have on a typical day when you are drinking?: 1 or 2 Total Score: 3 SALLY-7 AMB Questionnaire SALLY-7 Date SALLY - 7 assessed: 10/17/23 Feeling nervous, anxious, or on edge: 0 = Not at all Not being able to stop or control worryin = Not at all Worrying too much about different things: 0 = Not at all Trouble relaxin = Not at all Being so restless that it is hard to sit still: 0 = Not at all Becoming easily annoyed or irritable: 0 = Not at all Feeling afraid as if something awful might happen: 0 = Not at all Total SALLY-7 score (0-4 normal; 5-9 mild; 10-14 moderate; 15-21 severe): 0 Source: Developed by Drs. Joseph Morris, Sruthi Cary, León Avila and colleagues, with an educational catalino from [employer]. Physical exam (Primary Care) Vital Signs: Last Vital Signs Pulse 72 10/17/23 09:54 BP 120/70 10/17/23 09:54 Pulse Ox 100 10/17/23 09:54 Oxygen Delivery Method Room Air 10/17/23 09:54 Care Plan Goal for BP management: Blood pressure is stable. Continue current medications. BMI result Body Mass Index 19.7 Tobacco/Smoking Status: Tobacco use Status Tobacco use date assessed 10/17/23 10/17/23 09:56 Patient Tobacco Use Status Never used Tobacco 10/17/23 09:56 e-Cigarette/Vaping Use Never Used 10/17/23 09:56 PHQ-9: PHQ-9 Score PHQ-9: Total score 0 10/17/23 09:56 Depression Screening Interpretation: Negative Thrive Assessment: Date of Thrive Assessment Date Thrive assessed 10/17/23 10/17/23 09:56 Currently or been in a relationship where the following occur: no concerns reported Advance Care Planning discussion: Exists, not on file Date of discussion: 10/17/23 Who was present: Patient Forms completed: Health Care Proxy and MOLST Const General: cooperative and healthy appearing Nutritional Appearance: well nourished Orientation/consciousness: patient oriented x3 Limitations: no limitations HENMT Head: Yes normal to inspection Eyes General: appearance normal, both eyes and all related structures Neck Neck: Yes normal visual inspection Chest Chest palpation & inspection: normal palpation of entire chest wall Resp Effort & Inspection: normal respiratory effort Skin Other: Chest: Left side: Fading erythematous rash. No new vesicles. Neuro General: patient oriented x3 Assessment and Plan Assessment & Plan (1) Hypercholesterolemia: Comment: Continue current medications. Code(s): E78.00 - Pure hypercholesterolemia, unspecified Plan: Blood work has been ordered. Will call with results. (2) Huitron's esophagus: Code(s): K22.70 - Huitron's esophagus without dysplasia Plan: Patient is due for a surveillance endoscopy (3) Post herpetic neuralgia: Code(s): B02.29 - Other postherpetic nervous system involvement Plan: Neurontin has been added to the regimen. 15 minutes spent on discussing the clinical course for this condition. Neurontin has been started at 100 mg 3 times daily. He can increase the dosage if pain symptoms are not controlled. (4) Annual physical exam: Code(s): Z00.00 - Encounter for general adult medical examination without abnormal findings Orders: Orders Basic Metabolic Panel Today E78.00 - Pure hypercholesterolemia, unspecified Prostate Specific Antigen Scr Today E78.00 - Pure hypercholesterolemia, unspecified Complete Blood Count no Diff Today E78.00 - Pure hypercholesterolemia, unspecified Liver Panel Today E78.00 - Pure hypercholesterolemia, unspecified Lipid Panel Today E78.00 - Pure hypercholesterolemia, unspecified Thyroid Stimulating Hormone Today E78.00 - Pure hypercholesterolemia, unspecified UA and rflx microscopic Today E78.00 - Pure hypercholesterolemia, unspecified Medications: New gabapentin (Neurontin) 100 mg PO TID 90 caps 1RF Coding Level of Care Code Est Pt Level 3 (93985) Est Pt Prev Care >65y(58575) Diagnoses Hypercholesterolemia E78.00 Huitron's esophagus K22.70 Post herpetic neuralgia B02.29 Annual physical exam Z00.00 Additional Codes Vital Signs *Quality* - Advance Care Planning discussion: Exists, not on file ([id number])
[2023-10-17 09:54] VITALS: BP 120/70; PULSE 72; O2SAT 100; BMI 19.7
== END 2023-10-17 11:20 | disposition home or self-care (01) ==
PROVIDERS: PCP Internal Medicine; Visit Provider Internal Medicine
DX: Z00.00 Encounter for general adult medical examination without abnormal findings (principal); E78.00 Pure hypercholesterolemia, unspecified; K22.70 Barrett's esophagus without dysplasia; B02.29 Other postherpetic nervous system involvement
CPT/HCPCS: 1123F; 99212; 99397

== ENCOUNTER 2023-10-19 08:12 | Outpatient (REF) | payer MEDICARE, SELFPAY ==
[2023-10-19 09:06] LABS: Hematocrit 46.3 % (42.0-52.0); Hemoglobin 15.2 g/dl (14.0-18.0); Mean Corpuscular HGB Conc 32.8 g/dl (31.0-36.0); Mean Corpuscular Hemoglobin 30.8 pg (27.0-33.0); Mean Corpuscular Volume 93.7 fL (80.0-98.0); Mean Platelet Volume 10.3 fL (9.4-12.4); Platelet Count 253 X10*3/uL (160-400); Red Blood Count 4.94 X10*6/uL (4.60-5.80); White Blood Count 4.6 X10*3/uL (4.8-10.8)
[2023-10-19 09:46] LABS: Alanine Aminotransferase 22 U/L (0-40); Alkaline Phosphatase 63 U/L (39-117); Anion Gap 11 (12-20); Aspartate Amino Transferase 26 U/L (5-37); Bilirubin Direct 0.3 mg/dL (0.0-0.5); Bilirubin Total 0.8 mg/dL (0.0-1.0); Blood Urea Nitrogen 23 mg/dL (9-16); Calcium 9.1 mg/dL (8.4-10.2); Carbon Dioxide 30 mmol/L (22-29); Chloride 105 mmol/L (96-108); Cholesterol 237 mg/dL (<200); Estimated Glomerular Filt Rate > 60; Glucose Random 94 mg/dL (60-115); HDL Cholesterol 79 mg/dL (>40); LDL Cholesterol Calculated 147 mg/dL (<100); Potassium 4.4 mmol/L (3.3-5.1); Sodium 142 mmol/L (135-145); Total Protein 6.4 g/dL (6.5-8.0); Triglycerides 55 mg/dL (<150)
[2023-10-19 09:54] LABS: Prostate Specific Antigen Scr 1.07 ng/mL (<0.05-4.0)
[2023-10-19 10:06] LABS: Thyroid Stimulating Hormone 1.16 uIU/mL (0.32-4.0)
== END 2023-10-19 08:13 | disposition home or self-care (01) ==
LOC: HO.LAB 08:12
PROVIDERS: PCP Internal Medicine; Visit Provider Internal Medicine
DX: E78.00 Pure hypercholesterolemia, unspecified (principal); Z12.5 Encounter for screening for malignant neoplasm of prostate
CPT/HCPCS: 36415; 80048; 80061; 80076; 84153; 84443; 85027

== ENCOUNTER 2024-05-20 08:56 | Outpatient (AMB) | payer MEDICARE, SELFPAY ==
--- NOTE | 2024-05-20 09:03 | A.OFFPC_ITS ---
Vital Signs 05/20/24 09:05 Height 6 ft 1 in Weight 163 lb 6 oz BMI 21.6 BP 130/62 Blood Pressure Location Lt brachial Position Sitting Pulse 73 Pulse Source Pulse Oximeter Pulse Oximetry (%) 82 L Oxygen Delivery Method Room Air Intake Visit Reasons: Growth spot/[place] Referral Intake Note: Patient is here to follow up on Growth spot and referral to Dermatology. Towel Stretcher Required: No Protection Mgr: Not Required per policy Accompanied by: Self / Same As Patient Allergies No Known Allergies Allergy (Verified 05/20/24 09:35) Medication List - Last Reconciled 05/20/24 by Buddy Nair MD gabapentin (Neurontin) 100 mg PO TID multivitamin 1 tab PO DAILY simvastatin 40 mg PO DAILY valacyclovir 1,000 mg PO TID Tobacco use date assessed: 05/20/24 Fall risk assessment: No Falls in past year Last assessed Fall Risk: 05/20/24 Dental Screening Dental Screen Date: 05/20/24 Did you have a dental visit in the last 12 months?: Yes Did you have a dental problem in the last 6 months where you did not have access to dental care?: No Was dental information given to patient?: Patient has dentist [facility] Medical History Post herpetic neuralgia Huitron's esophagus GERD (gastroesophageal reflux disease) Hypercholesterolemia Surgical History Hx of colonoscopy History of esophagogastroduodenoscopy (EGD) History of tonsillectomy Family History Mother No problems noted. Father No problems noted. 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 1. Little interest or pleasure in doing things: not at all 2. Feeling down, depressed, or hopeless: not at all 3. Trouble falling or staying asleep, or sleeping too much: not at all 4. Feeling tired or having little energy: not at all 5. Poor appetite or overeating: not at all 6. Feeling bad about yourself - or that you are a failure or have let yourself or your family down: not at all 7. Trouble concentrating on things, such as reading the newspaper or watching television: not at all 8. Moving or speaking so slowly that other people could have noticed. Or the opposite - being so fidgety or restless that you have been moving around a lot more than usual: not at all 9. Thoughts that you would be better off or of hurting yourself in some way: not at all Total score: 0 Depression Screening Interpretation: Negative Depression Screening Done: Yes Source: Developed by Drs. Joseph Morris, Sruthi Cary, León Avila and colleagues, with an educational catalino from [employer]. Thrive Questionnaire Date Thrive assessed: 05/20/24 I am a: Patient What is your living situation today?: I have a steady place to live Within the past 12 months, did the food you bought not last and you didn't have the money to get more?: Never true Within the past 12 months, did you worry whether your food would run out before you got money to buy more?: Never true Do you have trouble paying for medicines?: No Do you have trouble getting transportation to medical appointments?: No Do you have trouble paying your heating and electricity bill?: No Do you have trouble taking care of your child, family member or friend?: No Do you have trouble with day-to-day activities such as bathing, preparing meals, shopping, managing finances, etc.?: No Are you currently unemployed and looking for a job?: No Are you interested in more education?: No Please select the resources that you would like help with: None Currently or been in a relationship where the following occur: No concerns reported THRIVE Score: 0 AUDIT C Alcohol Use Questionnaire (AUDIT-C) 1. How often do you have a drink containing alcohol?: 2-3 times a week 2. How many drinks containing alcohol do you have on a typical day when you are drinking?: 1 or 2 Total Score: 3 SALLY-7 AMB Questionnaire SALLY-7 Date SALLY - 7 assessed: 05/20/24 Feeling nervous, anxious, or on edge: 0 = Not at all Not being able to stop or control worryin = Not at all Worrying too much about different things: 0 = Not at all Trouble relaxin = Not at all Being so restless that it is hard to sit still: 0 = Not at all Becoming easily annoyed or irritable: 0 = Not at all Feeling afraid as if something awful might happen: 0 = Not at all Total SALLY-7 score (0-4 normal; 5-9 mild; 10-14 moderate; 15-21 severe): 0 Source: Developed by Drs. Joseph Morris, Sruthi Cary, León Avila and colleagues, with an educational catalino from [employer]. Physical exam (Primary Care) Vital Signs: Last Vital Signs Pulse 73 05/20/24 09:05 BP 130/62 05/20/24 09:05 Pulse Ox 82 L 05/20/24 09:05 Oxygen Delivery Method Room Air 05/20/24 09:05 Care Plan Goal for BP management: BP in range, continue current medications BMI result Body Mass Index 21.6 Tobacco/Smoking Status: Tobacco use Status Tobacco use date assessed 05/20/24 05/20/24 09:10 Patient Tobacco Use Status Never used Tobacco 05/20/24 09:10 e-Cigarette/Vaping Use Never Used 05/20/24 09:10 PHQ-9: PHQ-9 Score PHQ-9: Total score 0 05/20/24 09:43 Depression Screening Interpretation: Negative Thrive Assessment: Date of Thrive Assessment Date Thrive assessed 05/20/24 05/20/24 09:10 Currently or been in a relationship where the following occur: No concerns reported Advance Care Planning discussion: Exists, not on file Date of discussion: 05/20/24 Forms completed: MOLST Time spent: 1-15 minutes, not on file Office Procedures Flu Questionnaire Does the patient have a severe egg allergy?: No Does the patient have severe life threatening allergies?: No Does the patient have a fever or illness today?: No Has the patient ever had Guillain-Gage Syndrome?: No Has the patient ever had any past reaction to a flu shot?: No Immunizations Fluarix Triv [id number] (PF) 45 mcg (15 mcg x 3)/0.5 mL IM syringe Performing Provider: Buddy Nair MD [facility] [place] Administered by: Mona Quintana RN on 05/20/24 09:34 Dose Route Admin Location Dispensed Lot Number Expiration Date NDC Sleeve Wheel Maker 0.5 mL IM Left Deltoid 0.5 mL [id number] 11/10/24 32989-003-29 TRAKLOK VIS Given Date VIS Provided VIS Publication Date 05/20/24 Single Vaccine 20 Eligibility Eligibility Date Funding Source Not [facility] [place]ible 05/20/24 Private Coding Level of Care Code Est Pt Level 4 (98643) Complex EM visit Add On G2211 Diagnoses Hypercholesterolemia E78.00 GERD (gastroesophageal reflux disease) K21.9 Screening for prostate cancer Z12.5 Nevus D22.9 Additional Codes Vital Signs *Quality* - Advance Care Planning discussion: Exists, not on file ([id number]) Vital Signs *Quality* - Time spent: 1-15 minutes, not on file ([id number]) Assessment & Plan Assessment & Plan (1) Hypercholesterolemia: Comment: Continue current medications. Code(s): E78.00 - Pure hypercholesterolemia, unspecified Category: Medical Plan: Fasting bw has been ordered. Will adjust statin dosage as per chol levels. (2) GERD (gastroesophageal reflux disease): Code(s): K21.9 - Gastro-esophageal reflux disease without esophagitis Category: Medical Plan: Pt has Barrets esophagus. Surveillance by GI (3) Screening for prostate cancer: Code(s): Z12.5 - Encounter for screening for malignant neoplasm of prostate Category: Medical Plan: PSA added to the bw (4) Nevus: Code(s): D22.9 - Melanocytic nevi, unspecified Plan: Dermatology appt requested. Plan History of Present Illness The patient is a 69-year-old male presenting with concerns about moles on his skin for which he desires a dermatological evaluation. He reports a history of numerous moles across various parts of his body, including his face, back, and foot, with the latter being previously identified as potentially concerning during an evaluation five years ago. . Additionally, he has a longstanding issue with rhinitis that he attributes to seasonal weather changes, beginning around March. He reports a recent history of COVID-19 infection which led to rescheduling his colonoscopy. He is interested in getting fasting blood work and has concerns about his testosterone levels, though he does not report symptoms commonly associated with low testosterone. Social History - Retired in October; attributes a weight gain of 10 pounds to reduced physical activity. - Active in family responsibilities; helps with granddaughter?s school pick-up and julkpp-wi-[id number]?s medical appointments. - Reports involvement in home activities and owns a treadmill and exercise bicycle. Regularly exercises with . Review of Systems - General: Reports weight gain of 10 pounds since October. - Respiratory: Reports persistent rhinitis since March. - Endocrine: Denies symptoms related to low testosterone but inquires about testing. - Infectious Disease: History of COVID-19 and shingles; awaiting flu vaccination. Physical Exam General: Appearance normal, both eyes and all related structures Nutritional Appearance: Well nourished, gained 10 pounds since halfway Orientation/consciousness: Patient oriented x3 Limitations: No limitations Head: Normal to inspection, multiple moles noted, one on the forehead and nose Neck: Normal visual inspection Chest: Normal palpation of entire chest wall Respiratory: Normal respiratory effort Neurology: Patient oriented x3 Skin: Several benign looking nevi in the back, lower back and on the left foot. Results Plan - Schedule dermatological consultation for examination of moles and potential biopsy if needed. - Discussed the irrelevance of regular testosterone testing given his absence of symptomatic concerns. - Reschedule colonoscopy with Dr. Lopez, as COVID-19 has disrupted initial plans. - Proceed with fasting blood work, excluding testosterone, at patient?s convenience. Patient was informed and verbally consented to the use of an ambient scribe for clinic note documentation during this visit. Discussion Notes During our discussion, I informed the patient about the necessity of a dermatological exam regarding his moles. We addressed his concerns about testosterone levels but discussed reasons why testing might not be essential given his asymptomatic state. I recommended the rebooking of his colonoscopy with Dr. Lopez and explained the protocol for fasting blood work. The patient was amenable to receiving the flu vaccine. I advised against unnecessary testosterone testing, explaining that recent findings do not support clinical benefits in the absence of symptomatic complaints. He voiced understanding of the need for dermatological evaluation and fasting labs without testosterone test. Patient Instructions - Schedule and attend dermatological appointment for mole examination. - Reschedule colonoscopy appointment with Dr. Lopez. - Proceed with fasting blood work (abstain from food post-midnight); black coffee permitted. - Receive flu vaccination as planned either here or at another provider, such [facility] - Maintain regular physical activity using the treadmill and exercise bicycle. - Follow up in six months for a general health check-up and further evaluation as needed. Orders: Orders Basic Metabolic Panel Today E78.00 - Pure hypercholesterolemia, unspecified, K21.9 - Gastro-esophageal reflux disease without esophagitis, Z12.5 - Encounter for screening for malignant neoplasm of prostate Complete Blood Count no Diff Today E78.00 - Pure hypercholesterolemia, unspecified, K21.9 - Gastro-esophageal reflux disease without esophagitis, Z12.5 - Encounter for screening for malignant neoplasm of prostate Lipid Panel Today E78.00 - Pure hypercholesterolemia, unspecified, K21.9 - Gastro-esophageal reflux disease without esophagitis, Z12.5 - Encounter for screening for malignant neoplasm of prostate Liver Panel Today E78.00 - Pure hypercholesterolemia, unspecified, K21.9 - Gastro-esophageal reflux disease without esophagitis, Z12.5 - Encounter for screening for malignant neoplasm of prostate Thyroid Stimulating Hormone Today E78.00 - Pure hypercholesterolemia, unspecified, K21.9 - Gastro-esophageal reflux disease without esophagitis, Z12.5 - Encounter for screening for malignant neoplasm of prostate UA and rflx microscopic Today E78.00 - Pure hypercholesterolemia, unspecified, K21.9 - Gastro-esophageal reflux disease without esophagitis, Z12.5 - Encounter for screening for malignant neoplasm of prostate Prostate Specific Antigen Scr Today Z12.5 - Encounter for screening for malignant neoplasm of prostate Influenza [id number] Immunization Today Z23 - Encounter for immunization
[2024-05-20 09:05] VITALS: BP 130/62; PULSE 73; O2SAT 82; BMI 21.6
== END 2024-05-20 09:38 | disposition home or self-care (01) ==
PROVIDERS: PCP Internal Medicine; Visit Provider Internal Medicine
DX: E78.00 Pure hypercholesterolemia, unspecified (principal); K21.9 Gastro-esophageal reflux disease without esophagitis; Z12.5 Encounter for screening for malignant neoplasm of prostate; D22.9 Melanocytic nevi, unspecified; Z23 Encounter for immunization; Z00.00 Encounter for general adult medical examination without abnormal findings

== ENCOUNTER 2024-05-20 08:56 | Outpatient (REF) | payer MEDICARE, SELFPAY | END 2024-05-20 08:57 | disposition home or self-care (01) | LOC: HO.LAB 08:56 | PROVIDERS: PCP Internal Medicine; Visit Provider Internal Medicine | DX: Z23 Encounter for immunization (principal); E78.00 Pure hypercholesterolemia, unspecified; K21.9 Gastro-esophageal reflux disease without esophagitis; D22.9 Melanocytic nevi, unspecified | CPT/HCPCS: 90471; 90656; 99212 ==

== ENCOUNTER 2024-05-21 07:27 | Outpatient (REF) | payer MEDICARE, SELFPAY ==
[2024-05-21 07:56] LABS: Hematocrit 45.3 % (42.0-52.0); Hemoglobin 15.3 g/dl (14.0-18.0); Mean Corpuscular HGB Conc 33.8 g/dl (31.0-36.0); Mean Corpuscular Hemoglobin 30.6 pg (27.0-33.0); Mean Corpuscular Volume 90.6 fL (80.0-98.0); Platelet Count 258 X10*3/uL (160-400); Red Cell Distribution Width 13.2 % (11.0-16.0); White Blood Count 5.2 X10*3/uL (4.8-10.8)
[2024-05-21 08:23] LABS: Alanine Aminotransferase 28 U/L (0-40); Anion Gap 9 (12-20); Aspartate Amino Transferase 26 U/L (5-37); Bilirubin Direct 0.3 mg/dL (0.0-0.5); Bilirubin Total 0.9 mg/dL (0.0-1.0); Blood Urea Nitrogen 25 mg/dL (9-16); Calcium 9.1 mg/dL (8.4-10.2); Carbon Dioxide 31 mmol/L (22-29); Chloride 105 mmol/L (96-108); Cholesterol 224 mg/dL (<200); Estimated Glomerular Filt Rate > 60; Glucose Random 105 mg/dL (60-115); HDL Cholesterol 79 mg/dL (>40); LDL Cholesterol Calculated 133 mg/dL (<100); Potassium 4.3 mmol/L (3.3-5.1); Sodium 141 mmol/L (135-145); Total Protein 6.6 g/dL (6.5-8.0); Triglycerides 63 mg/dL (<150)
[2024-05-21 08:35] LABS: Prostate Specific Antigen Scr 1.54 ng/mL (<0.05-4.0)
[2024-05-21 09:01] LABS: Alkaline Phosphatase 77 U/L (39-117)
[2024-05-21 11:07] LABS: Appearance Urine Clear; Color Urine Yellow; Glucose Urine UA Negative (Negative); Leukocyte Esterase Urine Negative (Negative); Nitrite Urine Negative (Negative); PH 5.5 (5.0-9.0); Specific Gravity - Urine >= 1.030 (1.005-1.025); Urine Blood Negative (Negative); Urine Ketones Negative (Negative); Urine Protein Negative (Neg-Trace)
== END 2024-05-21 07:28 | disposition home or self-care (01) ==
LOC: HO.LAB 07:27
PROVIDERS: PCP Internal Medicine; Visit Provider Internal Medicine
DX: E78.00 Pure hypercholesterolemia, unspecified (principal); K21.9 Gastro-esophageal reflux disease without esophagitis; Z12.5 Encounter for screening for malignant neoplasm of prostate
CPT/HCPCS: 36415; 80048; 80061; 80076; 81003; 84153; 84443; 85027

== ENCOUNTER 2024-08-21 11:26 | Outpatient (AMB) | payer MEDICARE, SELFPAY ==
--- NOTE | 2024-08-21 11:59 | MHC.PC.OV ---
Vital Signs 08/21/24 12:00 Height 6 ft 1 in Weight 168 lb 4 oz BMI 22.2 BP 120/70 Blood Pressure Location Lt brachial Position Sitting Pulse 74 Pulse Source Pulse Oximeter Temp 97.5 F Temp Source Temporal Artery Scan Pulse Oximetry (%) 97 Oxygen Delivery Method Room Air Intake Visit Reasons: High Bp Intake Note: Patient is here to follow up on High BP. Print Journalist Required: No Classified Advertising Supervisor: Not Required per policy Accompanied by: Self / Same As Patient Allergies No Known Allergies Allergy (Verified 08/21/24 12:17) Medication List - Last Reconciled 08/21/24 by Cristy Corley PA-C gabapentin (Neurontin) 100 mg PO TID multivitamin 1 tab PO DAILY simvastatin 40 mg PO DAILY valacyclovir 1,000 mg PO TID Tobacco use date assessed: 08/21/24 Fall risk assessment: No Falls in past year Last assessed Fall Risk: 08/21/24 Dental Screening Dental Screen Date: 05/20/24 HPI High Bp HPI Details History of Present Illness The patient is a 69-year-old male presenting with concerns regarding blood pressure management. Recently, he developed leg pain initially following treadmill exercise, with symptoms worsening and leading to hobbling due to inability to bear weight properly. Initial care suspected metatarsalgia, but persistent swelling led to further evaluation revealing a stress fracture in the third metatarsal. A walking boot was recommended for pressure relief and stabilization. Significant blood pressure fluctuations were noted, potentially exacerbated by pain and dietary choices. Generally, the patient maintains near-normal blood pressure levels without medication. Social History - Retired, working part-time. - Engages in physical exercise such as treadmill walking. - Manages diet and fluid intake with occasional lapses leading to increased salt consumption. COUNTS INCLUDE 234 BEDS AT THE [facility] Medical History (Updated 08/21/24 @ 12:34 by Cristy Corley PA-C) Blood pressure check Post herpetic neuralgia Huitron's esophagus GERD (gastroesophageal reflux disease) Hypercholesterolemia Surgical History Hx of colonoscopy History of esophagogastroduodenoscopy (EGD) History of tonsillectomy Family History Mother No problems noted. Father No problems noted. 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 Joseph Morris, Sruthi Cary, León Avila and colleagues, with an educational catalino from [employer]. Review of Systems Const Details: Review of Systems - Musculoskeletal: Reports leg pain and swelling, specifically in the metatarsal area. - Cardiovascular: Reports elevated blood pressure readings. Denies chest pain, dizziness, or headache. - General: Denies falls or trauma to the leg. Physical exam (Primary Care) Vital Signs: Last Vital Signs Temp 97.5 F 08/21/24 12:00 Pulse 74 08/21/24 12:00 BP 120/70 08/21/24 12:00 Pulse Ox 97 08/21/24 12:00 Oxygen Delivery Method Room Air 08/21/24 12:00 Care Plan Goal for BP management: <130/80 at Goal BMI result Body Mass Index 22.2 normal weight Tobacco/Smoking Status: Tobacco use Status Tobacco use date assessed 08/21/24 08/21/24 12:03 Patient Tobacco Use Status Never used Tobacco 08/21/24 12:03 e-Cigarette/Vaping Use Never Used 08/21/24 12:03 Thrive Assessment: Date of Thrive Assessment Date Thrive assessed 05/20/24 08/21/24 12:03 Const Other: Physical Exam Appearance: Alert. Oriented X3. No acute distress. Head: Normal external exam. Normocephalic. Atraumatic. Eyes: Pupils are equal, round, and reactive to light. Extraocular movements intact. Conjunctiva and sclera normal. Eyelids normal. Throat: Pharynx normal. Uvula midline. Moist mucous membranes. Neck: Normal inspection. Neck supple. Full range of motion. Cardiovascular: Normal heart rate and rhythm. Heart sound normal. No murmurs noted. Pulses normal throughout. Respiratory: No respiratory distress. Painless inspiration. Breath sounds normal. Back: Full range of motion noted. Skin: Skin warm and dry. Normal skin color. Normal skin turgor. No rashes/lesions/lacerations noted. Extremities: Swelling noted in the foot, particularly around the metatarsal area. Hairline crack (stress fracture) in the number three metatarsal bone. There is no lower extremity edema. He has a normal steady gait with walking boot. Moving all extremities. Neuro: Oriented X 3. Coding Level of Care Code Est Pt Level 3 (38556) Diagnoses Blood pressure check Z01.30 Assessment & Plan Assessment & Plan (1) Blood pressure check: Code(s): Z01.30 - Encounter for examination of blood pressure without abnormal findings Category: Medical Plan: Close monitoring of blood pressure with a suggested follow-up to reassess after rest, pain control, and dietary adjustments. Patient to return in 1 week for blood pressure check. Condition is stable blood pressure is 120/70 at a normal range at this time. Will continue to monitor. Plan Plan Patient was informed and verbally consented to the use of an ambient scribe for clinic note documentation during this visit. 1. Stress Fracture Of The Third Metatarsal Bone Continued use of a walking boot is recommended for offloading pressure. Monitoring recommended. 2. Hypertension Close monitoring of blood pressure with a suggested follow-up to reassess after rest, pain control, and dietary adjustments. 3. Metatarsalgia Managed by advising rest, elevation, and NSAIDs such as Motrin for inflammation control. Discussion Notes During our conversation, I explained the confirmed diagnoses of a stress fracture of the third metatarsal bone and how it relates to the patient?s symptoms of foot pain and swelling. Usage of a walking boot was discussed as a measure to aid healing and prevent further complications. For the hypertension, we deliberated over dietary factors, including salt intake, that could temporarily elevate blood pressure, and measures like regular monitoring of blood pressure at home with periodic follow-ups. The importance of adjusting lifestyle factors such as diet and stress was emphasized, and I encouraged a vigilant approach towards monitoring symptoms, given the patient?s typical normal readings. I suggested a follow-up visit within a week to re-evaluate and assess if further therapeutic interventions are necessary. Patient Instructions: Patient Instructions - Wear the walking boot as recommended to offload pressure from the foot. - Rest, elevate the foot, and continue using NSAIDs like Motrin for inflammation. - Monitor blood pressure once daily in the morning and record readings. - Avoid high-salt foods and minimize caffeine intake. - Ensure adequate fluid intake, preferably water, and aim for approximately a gallon per day. - Schedule a follow-up appointment in a week for a blood pressure check. - Monitor for symptoms such as persistent headache, dizziness, or chest pain and seek immediate care if they occur.
[2024-08-21 12:00] VITALS: BP 120/70; PULSE 74; TEMP 36.4; O2SAT 97; BMI 22.2
--- OUTSIDE RECORDS SUMMARY | 2024-08-21 13:53 | XMS_ITS | Patient Health Record ---
Author Organization [facility] Address [address] [place] [address] Care Team Providers Care Pilot Instructor Name Role Phone MARGARITO VELAZQUEZ Primary Care Provider Joseph Donis Unavailable [phone] Allergies No Known Allergies Reason For Referral [...] Status Risk Notes Problem Colon cancer screening (615932562) Colon cancer screening (Z12.11) Active confirmed Problem 700342198 Left upper quadrant pain (R10.12) Active confirmed Problem Gastroesophageal reflux disease (659283094) GERD (gastroesopha geal reflux disease) (K21.9) Active confirmed Problem Huitron esophagus (446312754) 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) Active confirmed Problem Huitron's esophagus (769220876) Huitron''s esophagus without dysplasia (K22.70) Active confirmed Vital Signs Blood pressure diastolic 11 mm Hg 08/15/2024 Height 71 in 08/15/2024 Blood pressure systolic 111 mm Hg 08/15/2024 Weight 169 lbs 08/15/2024 BMI 23.57 kg/m2 08/15/2024 Procedures Procedure Date Ordered Date Performed Result Body Sit e UPPER GI ENDOSCOPY 08/15/2024 N/A COLONOSCOPY 08/15/2024 N/A Encounters Encounter Location Date Provider Diagnosis [facility] [address] [place] [address] 08/15/2024 Joseph Lopez GERD (gastroesophageal reflux disease) K21.9 ; Huitron''s esophagus without dysplasia K22.70 and Colon cancer screening Z12.11 [facility] [address] [place] [address] 08/21/2024 Joseph Lopez Assessments Encounter Date Diagnosis (ICD Code) Assessment [...] GI ENDOSCOPY 10/25/2021 Next Appt Details Provider Name:Joesph Fine Jessica , 08/22/2024 11:00:00 AM, [address] [place] [address] , [place], [place], [phone], Insurance Providers Payer Name Payer Address Payer Phone Subscriber Number Group Number Insured Name Patient Relationship to Insured Coverage Start Date Coverage End Date [facility] [address] [place] [phone] [id number] CAESAR HELLER Self - patient is the insured 4 Medical (General) History Medical History History ICD Code Denies SC,DM,CVA,Lung disease,renal dise ase Hyperlipidemia Herniated disc in back L4/L5--no surgery Arthritis Colonoscopy 2013-only a hyperplastic mary lou yp Tiny gallbladdder polyps seen on U/S 201 9 Upper endoscopy in July of 2018 revealed a small hiatal hernia and very small area of Huitron's esophagus with biopsies negative for dysplasia EGD 2021-[facility] HH, minimal intestinal metaplasia without dysplasia Surgical History Surgery Date(Month/Year) Tonsillectomy 1963
--- OUTSIDE RECORDS SUMMARY | 2024-08-21 13:53 | XMS_ITS ---
Author Organization [facility] Address [address] [place] [address] Care Team Providers Care Senior Benefits Manager Name Role Phone MARCUS MARGARITO Primary Care Provider Joseph Donis [phone] REASON FOR VISIT Patient presents today for mcdonald's, recall colonoscopy Medications Medication SIG (Take, Route, Fr equency, Duration) Notes Start Date End Date Status Multi Vitamin/Minerals Active Simvastatin 20 MG 1 tablet in the even ing Orally Once a day Active Problems Problem Type SNOMED Code ICD Code Onset Dates Problem Status W/U Status Risk Notes Problem Gastroesophageal reflux disease (638536553) GERD (gastroesopha geal reflux disease) (K21.9) Active confirmed Problem Mcdonald's esophagus (631207434) Mcdonald''s esophagus without dysplasia (K22.70) Active confirmed Problem Colon cancer screening (400157107) Colon cancer screening (Z12.11) Active confirmed Vital Signs Blood pressure systolic 111 mm Hg 08/16/19 25 Blood pressure diastolic 11 mm Hg 025 Height 71 in 08/15/2024 Weight 169 lbs 08/15/2024 BMI 23.57 kg/m2 08/15/2024 Procedures Procedure Date Ordered Date Performed Result Body Sit e UPPER GI ENDOSCOPY 08/15/2024 N/A COLONOSCOPY 08/15/2024 N/A Encounters Encounter Location Date Provider Diagnosis [facility] [address] [place] [phone] 08/15/2024 Joseph Lopez GERD (gastroesophageal reflux disease) [...] Provider Name:Joseph Lopez , 08/22/2024 11:00:00 AM, [address] [place] [address], [phone], Progress Notes * NGUYEN HELLERHDOB:1955 (69 yo M)Acc No.[id number]:08/15/2024 Progress Notes Patient:?CAESAR HELLER Provider:?Joseph Lopez MD :1955???Age:69 Y???Sex:Male Maxim e:08/15/2024 Address:[address] [place], [place] [id number] Pcp:MARGARITO VELAZQUEZ Subjective: * Chief Complaints: * [...] for any adenomatous polyps. * Medical History:?Denies [place],D M,CVA,Lung disease,renal disease, Hyperlipidemia, Herniated disc in [...] Screen?Points: 6, Interpretation: Positive.?Miscellaneous:?Marital status: . 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 ???Nonsmoker; 2 beers approximately QD M-F, 6-8 [...] cancer screening?Procedure: COLONOSCOPY* with MAC * Procedure Codes:?65324 UPPR GI ENDOSCOPY, DIAGNOSIS, 46761 DIAGNOSTIC COLONOSCOPY * Preventive Medicine:? ??Screenings:?Fall Risk [...] MD Date:? 025 Generated for Christina dacosta/Lucius/Ayansmitting on:?08/21/2024 01:53 PM EDT
--- OUTSIDE RECORDS SUMMARY | 2024-08-21 13:53 | XMS_ITS | Clinical Summary ---
Author Organization [facility] Address [address] [place] [address] Care Team Providers Care Composite Technician Name Role Phone System, Provider Not In [...] age to complete this topic Care Teams Composite Technician Relationship Specialty Start Date End Date System, Provider Not In PCP - General 01/04/21
--- OUTSIDE RECORDS SUMMARY | 2024-08-21 13:54 | XMS_ITS ---
Author Organization [facility] Address [address] [place] [address] Care Team Providers Care Physiotherapist'S Assistant Name Role Phone MARGARITO VELAZQUEZ Primary Care Provider Joseph Donis [phone] REASON FOR VISIT H & P Encounters Encounter Location Date Provider Diagnosis [facility] [address] [facility] [address] [place] [phone] 08/21/2024 Joseph Lopez Plan Of Treatment Next Appt Details Provider Name:Joseph Lopez , 08/22/2024 11:00:00 AM, [address] [place] [address] , [place], [place], [phone], Progress Notes * NGUYEN HELLERHDOB:1955 (69 yo M)Acc No.[id number]:08/21/2024 Patient:?CAESAR HELLER :1955???Age:69 Y???Sex:Male Address:[address] [place] [address], [place], [address] * * Date:?
--- OUTSIDE RECORDS SUMMARY | 2024-08-21 13:54 | XMS_ITS | Clinical Summary ---
Author Organization [facility] Address [address] [place] [address] Care Team Providers Care Cosmetic Surgeon Name Role Phone Unavailable Primary Care Provider [...] - 2023-2 5 season) 2024 Influenza Vaccine (Season Ended) 2025 RSV Immunization Adult Patie nts (1 - [...] age to complete this topic Meningococcal B Vaccine Aged Out No l onger eligible based on patient's age to complete this topic RSV Immunization Patients Un randy 20 months Aged Out No longer eligible b ased on patient's age to complete this topic Varicella Vaccines Aged Out No longer eligible based on patient's age to complete this topic
--- OUTSIDE RECORDS SUMMARY | 2024-08-21 13:54 | XMS_ITS ---
Author Organization [facility] Address [address] [place] [phone] Care Team Providers Care Production Specialist Name Role Phone MARGARITO VELAZQUEZ Primary Care Provider Joseph Donis [phone] REASON FOR VISIT Patient presents today for BARRETTS ESOPHAGUS, SCREENING COLON Encounters Encounter Location Date Provider Diagnosis [facility] [address] [facility] [address] [place] [phone] 04/30/2024 Joseph Lopez Plan Of Treatment Next Appt Details Provider Name:Joseph Lopez , 08/22/2024 11:00:00 AM, [address] [place] [address], [phone], Progress Notes * NGUYEN HELLERHDOB:1955 (69 yo M)Acc No.[id number]:04/30/2024 Progress Notes Patient:?CAESAR HELLER Provider:?Joseph Lopez MD :1955???Age:69 Y???Sex:Male Maxim e:04/30/2024 Address:[address] [place] [address], [id number] Pcp:MARGARITO VELAZQUEZ Subjective: * Chief Complaints: * [...] MD Date:? 024 Generated for Christina dacosta/Lucius/Dann on:?08/21/2024 01:53 PM EDT
== END 2024-08-21 12:32 | disposition home or self-care (01) ==
LOC: HO.HMCH 11:26
PROVIDERS: PCP Internal Medicine; Visit Provider Physician Assistant Medical
DX: Z01.30 Encounter for examination of blood pressure without abnormal findings (principal)

== ENCOUNTER → 2024-08-21 11:26 | Outpatient (BNVA) | payer MEDICARE, SELFPAY | PROVIDERS: PCP Internal Medicine; Visit Provider Physician Assistant Medical | DX: Z01.30 Encounter for examination of blood pressure without abnormal findings (principal); I10 Essential (primary) hypertension | CPT/HCPCS: 99212 ==

== ENCOUNTER 2024-08-22 07:09 | Day surgery (SDC) | payer MEDICARE, SELFPAY ==
--- OUTSIDE RECORDS SUMMARY | 2024-08-18 06:10 | XMS_ITS | Clinical Summary ---
Author Organization [facility] Address [address] [place] [address] Care Team Providers Care Mental Health Coordinator Name Role Phone System, Provider Not In Primary Care Provider Un available Allergies No known active allergies Medications Medication Sig Dispensed Refills Start Date End Date Status cephalexin (KEFLEX) 500 MG capsule Take 1 capsule (500 mg total) by mouth 2 (two) times a day. 10 capsule 01/04/2021 Active Social History Tobacco Use Types Packs/Day Years Used Date Smoking Tobacco: Never Smokeless Tobacco: Never Sex and Gender Information Value Date Recorded Sex Assigned at Not on file Gender Identity Not on file Sexual Orientation Not on file Last Filed Vital Signs Vital Sign Reading Time Taken Comments Blood Pressure 139/95 01/04/2021 12:45 PM EDT Pulse 84 01/04/2021 12:45 PM EDT Temperature 36.8 ??C (98.2 ??F) 01/04/2021 12:45 PM E DT Respiratory Rate 18 01/04/2021 12:45 PM EDT Oxygen Saturation 99% 01/04/2021 12:45 PM EDT Inhaled Oxygen Concentration - - Weight - - Height - - Body Mass Index - - Plan of Treatment Health Maintenance Due Date Last Done Comments Hepatitis C Virus Screening 1955 DTaP/Tdap/Td Vaccines (1 - Tdap) 1976 Colonoscopy 2002 Pneumococcal Vaccines 50+ (1 of 1 - PCV) 2007 Zoster (Shingles) Vaccine (1 of 2) 2007 Influenza Vaccine 12/13/2023 COVID-19 Vaccine ( - 2023-2 5 season) 2024 RSV Vaccine 60 years and old er and Patients (1 - 1-dose 75+ series) 2032 Hepatitis B Vaccines Aged Out No long er eligible based on patient's age to complete this topic Care Teams Mental Health Coordinator Relationship Specialty Start Date End Date System, Provider Not In PCP - General 01/04/21
--- OUTSIDE RECORDS SUMMARY | 2024-08-18 06:10 | XMS_ITS ---
Author Organization [facility] Address [address] [place] [id number] Care Team Providers Care Last Repairer Helper Name Role Phone MARGARITO VELAZQUEZ Primary Care Provider Joseph Donis [phone] REASON FOR VISIT Patient presents today for BARRETTS ESOPHAGUS, SCREENING COLON Encounters Encounter Location Date Provider Diagnosis [facility] [address] [place] [phone] 04/30/2024 Joseph Lopez Plan Of Treatment Next Appt Details Provider Name:Joseph Lopez , 08/22/2024 11:00:00 AM, [address] [place] [address], [id number], Progress Notes * NGUYEN HELLERHDOB:1955 (69 yo M)Acc No.[id number]:04/30/2024 Progress Notes Patient:?CAESAR HELLER Provider:?Joseph Lopez MD :1955???Age:69 Y???Sex:Male Maxim e:04/30/2024 Address:[address] [place] [address], [id number] Pcp:MARGARITO VELAZQUEZ Subjective: * Chief Complaints: * ???1. Patient presents today for BARRETTS ESOPHAGUS, SCREENING COLON. * Medical History:? Objective: * Vitals:? Assessment: Plan: * Treatment: * * The named appointment provid er may or may not be the originator of this progress note, and it is not deemed complete until electronically signed by the appointment provider. Sign off status: Pending * Provider:?Joseph Lopez MD Date:? 024 Generated for Christina dacosta/Lucius/Dann on:?08/18/2024 06:10 AM EDT
--- OUTSIDE RECORDS SUMMARY | 2024-08-18 06:10 | XMS_ITS ---
Author Organization [facility] Address [address] [place] [phone] Care Team Providers Care Newspaper Subscription Solicitor Name Role Phone MARCUS MARGARITO Primary Care Provider Joseph Donis [phone] REASON FOR VISIT Patient presents today for mcdonald's, recall colonoscopy Medications Medication SIG (Take, Route, Fr equency, Duration) Notes Start Date End Date Status Multi Vitamin/Minerals Active Simvastatin 20 MG 1 tablet in the even ing Orally Once a day Active Problems Problem Type SNOMED Code ICD Code Onset Dates Problem Status W/U Status Risk Notes Problem Gastroesophageal reflux disease (317852137) GERD (gastroesopha geal reflux disease) (K21.9) Active confirmed Problem Mcdonald's esophagus (816755281) Mcdonald''s esophagus without dysplasia (K22.70) Active confirmed Problem Colon cancer screening (841969584) Colon cancer screening (Z12.11) Active confirmed Vital Signs Blood pressure systolic 111 mm Hg 08/16/19 25 Blood pressure diastolic 11 mm Hg 025 Height 71 in 08/15/2024 Weight 169 lbs 08/15/2024 BMI 23.57 kg/m2 08/15/2024 Procedures Procedure Date Ordered Date Performed Result Body Sit e UPPER GI ENDOSCOPY 08/15/2024 N/A COLONOSCOPY 08/15/2024 N/A Encounters Encounter Location Date Provider Diagnosis [facility] [address] [place] [phone] 08/15/2024 Joseph Lopez GERD (gastroesophageal reflux disease) K21.9 ; Mcdonald''s esophagus without dysplasia K22.70 and Colon cancer screening Z12.11 Assessments Encounter Date Diagnosis (ICD Code) Assessment Notes Treatment Notes Treatment Clinical Notes Section Notes 08/15/2024 GERD (gastroesophag eal reflux disease) (ICD-10 - K21.9) Overall, Renato appears quite well. He is not having any new or worrisome GI complaints and is doing well without any need for omeprazole in regard to the previous history of reflux. I have recommended a follow-up upper endoscopy for further surveillance as it has been almost 3 years since his last endoscopy. He will also undergo a follow-up screening colonoscopy on the same day given his last colonoscopy being over 10 years ago. We did review the rationale for the colonoscopy in regard to colorectal cancer prevention and/or early detection. We also reviewed the rationale for the upper endoscopy in regard to the theoretical increased risk of esophageal cancer in patients with Mcdonald's esophagus. Full consent has been obtained from him for both procedures, including risks of bleeding and perforation. The procedures will be done with monitored anesthesia care. Renato was very comfortable with this plan. Thank you again for allowing me to participate in Renato's care. I shall continue to keep you advised of his progress.. 08/15/2024 Mcdonald''s esophagus without dysplasia (ICD-10 - K22.70) Overall, Renato appears quite well. He is not having any new or worrisome GI complaints and is doing well without any need for omeprazole in regard to the previous history of reflux. I have recommended a follow-up upper endoscopy for further surveillance as it has been almost 3 years since his last endoscopy. He will also undergo a follow-up screening colonoscopy on the same day given his last colonoscopy being over 10 years ago. We did review the rationale for the colonoscopy in regard to colorectal cancer prevention and/or early detection. We also reviewed the rationale for the upper endoscopy in regard to the theoretical increased risk of esophageal cancer in patients with Mcdonald's esophagus. Full consent has been obtained from him for both procedures, including risks of bleeding and perforation. The procedures will be done with monitored anesthesia care. Renato was very comfortable with this plan. Thank you again for allowing me to participate in Renato's care. I shall continue to keep you advised of his progress.. 08/15/2024 Colon cancer screening (ICD-10 - Z12.11) Overall, Renato appears quite well. He is not having any new or worrisome GI complaints and is doing well without any need for omeprazole in regard to the previous history of reflux. I have recommended a follow-up upper endoscopy for further surveillance as it has been almost 3 years since his last endoscopy. He will also undergo a follow-up screening colonoscopy on the same day given his last colonoscopy being over 10 years ago. We did review the rationale for the colonoscopy in regard to colorectal cancer prevention and/or early detection. We also reviewed the rationale for the upper endoscopy in regard to the theoretical increased risk of esophageal cancer in patients with Mcdonald's esophagus. Full consent has been obtained from him for both procedures, including risks of bleeding and perforation. The procedures will be done with monitored anesthesia care. Renato was very comfortable with this plan. Thank you again for allowing me to participate in Renato's care. I shall continue to keep you advised of his progress.. Plan Of Treatment Pending Test Test Name Order Date UPPER GI ENDOSCOPY 08/15/2024 COLONOSCOPY 08/15/2024 Next Appt Details Provider Name:Joseph Lopez , 08/22/2024 11:00:00 AM, [address] [place] [address], [id number], Progress Notes * NGUYEN HELLERHDOB:1955 (69 yo M)Acc No.[id number]:08/15/2024 Progress Notes Patient:?CAESAR HELLER Provider:?Joseph Lopez MD :1955???Age:69 Y???Sex:Male Maxim e:08/15/2024 Address:[address] [place], [place] [id number] Pcp:MARGARITO VELAZQUEZ Subjective: * Chief Complaints: * ???1. Patient presents today for mcdonald's, recall colonoscopy. * HPI: ???incontinence:? I saw Renato in follow-up today in regard to his underlying history of gastroesophageal reflux, Mcdonald's esophagus, and discussion of colorectal cancer screening. I last saw Renato in November 2021, at which time he underwent an upper endoscopy with the finding of his known minimal hiatal hernia and small area of Mcdonald's esophagus. There was no evidence of any dysplasia within the biopsies and there was no evidence of esophagitis. He had stopped his omeprazole prior to that and has remained off of it without any return of his reflux symptoms. He denies any significant heartburn, dysphagia, early satiety, nausea, nor vomiting. His bowel movements have been regular and without any signs of bleeding. He denies any abdominal pain, signs of jaundice, nor unintentional weight loss. He denies any known family history of colorectal cancer. His screening colonoscopy in 2013 was negative for any adenomatous polyps. * Medical History:?Denies NH,D M,CVA,Lung disease,renal disease, Hyperlipidemia, Herniated disc in back L4/L5--no surgery, Arthritis, Colonoscopy 2013-only a hyperplastic polyp, Tiny gallbladdder polyps seen on U/S 2018, Upper endoscopy in July of 2018 revealed a small hiatal hernia and very small area of Mcdonald's esophagus with biopsies negative for dysplasia, EGD 2021-minimnal HH, minimal intestinal metaplasia without dysplasia. * Surgical History:?Tonsillect ramone 1962. * Family History:?Father: dece ased.?Mother: .? No colorectal cancer. * Social History:?Tobacco Use:?Tobacco Use/Smoking?Are you a: nonsmoker.?Drugs/Alcohol:?Alcohol Screen?Points: 6, Interpretation: Positive.?Miscellaneous:?Marital status: . 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 ???Nonsmoker; 2 beers approximately QD M-F, 6-8 beers on a weekend. * Medications:?Taking Simvasta tin 20 MG Tablet 1 tablet in the evening Orally Once a day , Taking Multi Vitamin/Minerals , Discontinued Omeprazole 20 MG Capsule Delayed Release TAKE ONE CAPSULE BY MOUTH EVERY DAY , Medication List reviewed and reconciled with the patient Objective: * Vitals:?Wt:169lbs, Ht: 71 in , BMI:23.57Index, BP:111/11mm Hg, Wt-k.66. Assessment: * Assessment: 1.?GERD (gastroesophageal re flux disease) - K21.9 (Primary)???2.?Mcdonald''s esophagus without dysplasia - K22.70???3.?Colon cancer screening - Z12.11??? Overall, Renato appears quite w ell. He is not having any new or worrisome GI complaints and is doing well without any need for omeprazole in regard to the previous history of reflux. I have recommended a follow-up upper endoscopy for further surveillance as it has been almost 3 years since his last endoscopy. He will also undergo a follow-up screening colonoscopy on the same day given his last colonoscopy being over 10 years ago. We did review the rationale for the colonoscopy in regard to colorectal cancer prevention and/or early detection. We also reviewed the rationale for the upper endoscopy in regard to the theoretical increased risk of esophageal cancer in patients with Mcdonald's esophagus. Full consent has been obtained from him for both procedures, including risks of bleeding and perforation. The procedures will be done with monitored anesthesia care. Renato was very comfortable with this plan. Thank you again for allowing me to participate in Renato's care. I shall continue to keep you advised of his progress.. Plan: * Treatment: 2.?Mcdonald''s esophagus without dysplasia?Procedure: UPPER GI ENDOSCOPY* with MAC 3.?Colon cancer screening?Procedure: COLONOSCOPY* with MAC * Procedure Codes:?19442 UPPR GI ENDOSCOPY, DIAGNOSIS, 62584 DIAGNOSTIC COLONOSCOPY * Preventive Medicine:? ??Screenings:?Fall Risk Screening?Fall Risk Assessment:?No falls in the past year,?Screening:?No falls in the past year,?Assessment:?Not performed, no reason specified,?Plan of Care:?Not documented, no reason specified.? * * The named appointment provid er may or may not be the originator of this progress note, and it is not deemed complete until electronically signed by the appointment provider. Sign off status: Pending * Provider:?Joseph Lopez MD Date:? 025 Generated for Christina dacosta/Lucius/Ayansmitting on:?08/18/2024 06:09 AM EDT
--- OUTSIDE RECORDS SUMMARY | 2024-08-18 06:10 | XMS_ITS | Clinical Summary ---
Author Organization [facility] Address [address] [place] [address] Care Team Providers Care Family Practice Medical Doctor Name Role Phone Unavailable Primary Care Provider Unavailabl e Social History Tobacco Use Types Packs/Day Years Used Date Smoking Tobacco: Never Assessed Sex and Gender Information Value Date Recorded Sex Assigned at Not on file Legal Sex Male 12:06 PM EDT Gender Identity Not on file Sexual Orientation Not on file Plan of Treatment Health Maintenance Due Date Last Done Comments DTaP,Tdap,and Td Vaccines (1 - Tdap) 1976 Pneumococcal Vaccine: 50+ Ye ars (1 of 1 - PCV) 2007 Zoster Vaccines (1 of 2) 2007 COVID-19 Vaccine ( - 2023-2 5 season) 2024 Influenza Vaccine (#1) 2024 RSV Immunization Adult Patie nts (1 - 1-dose 75+ series) 2032 HIB Vaccines Aged Out No longer eligi ble based on patient's age to complete this topic HPV Vaccines Aged Out No longer eligi ble based on patient's age to complete this topic Hepatitis A Vaccines Aged Out No long er eligible based on patient's age to complete this topic Hepatitis B Vaccines Aged Out No long er eligible based on patient's age to complete this topic IPV Vaccines Aged Out No longer eligi ble based on patient's age to complete this topic MMR Vaccines Aged Out No longer eligi ble based on patient's age to complete this topic Meningococcal ACWY Vaccine Aged Out N o longer eligible based on patient's age to complete this topic Meningococcal B Vacine Aged Out No lo nger eligible based on patient's age to complete this topic RSV Immunization Patients Un randy 20 months Aged Out No longer eligible b ased on patient's age to complete this topic Varicella Vaccines Aged Out No longer eligible based on patient's age to complete this topic
--- OUTSIDE RECORDS SUMMARY | 2024-08-18 06:10 | XMS_ITS | Patient Health Record ---
Author Organization [facility] Address [address] [place] [address] Care Team Providers Care Mobile Phlebotomist Name Role Phone MARGARITO VELAZQUEZ Primary Care Provider Joseph Donis Unavailable [phone] Allergies No Known Allergies Reason For Referral No Information Medications Medication SIG (Take, Route, Fr equency, Duration) Notes Start Date End Date Status Multi Vitamin/Minerals Active Simvastatin 20 MG 1 tablet in the even ing Orally Once a day Active Immunizations Vaccine Route Administration Date Status Comme nts Influenza Unknown 01/12/2021 Administered Influenza Unknown 07/30/2018 Refused Problems Problem Type SNOMED Code ICD Code Onset Dates Problem Status W/U Status Risk Notes Problem Colon cancer screening (107008468) Colon cancer screening (Z12.11) Active confirmed Problem 614693877 Left upper quadrant pain (R10.12) Active confirmed Problem Gastroesophageal reflux disease (999066337) GERD (gastroesopha geal reflux disease) (K21.9) Active confirmed Problem Huitron esophagus (482160715) 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) Active confirmed Problem Huitron's esophagus (979723969) Huitron''s esophagus without dysplasia (K22.70) Active confirmed Vital Signs Blood pressure diastolic 11 mm Hg 08/15/2024 Height 71 in 08/15/2024 Blood pressure systolic 111 mm Hg 08/15/2024 Weight 169 lbs 08/15/2024 BMI 23.57 kg/m2 08/15/2024 Procedures Procedure Date Ordered Date Performed Result Body Sit e UPPER GI ENDOSCOPY 08/15/2024 N/A COLONOSCOPY 08/15/2024 N/A Encounters Encounter Location Date Provider Diagnosis [facility] [address] [place] [address] 08/15/2024 Joseph Lopez GERD (gastroesophageal reflux disease) K21.9 ; Huitron''s esophagus without dysplasia K22.70 and Colon cancer [...] risk of esophageal cancer in patients with Huitron's esophagus. Full consent has been obtained from him for both procedures, including risks of bleeding and perforation. The procedures will be done with monitored anesthesia care. Renato was very comfortable with this plan. Thank you again for allowing me to participate in Renato's care. I shall continue to keep you advised of his progress.. 08/15/2024 Huitron''s esophagus without dysplasia (ICD-10 - K22.70) Overall, [...] risk of esophageal cancer in patients with Huitron's esophagus. Full consent has been obtained from [...] risk of esophageal cancer in patients with Huitron's esophagus. Full consent has been obtained from [...] Date UPPER GI ENDOSCOPY 08/15/2024 COLONOSCOPY 08/15/2024 Future Test Test Name Order Date COLONOSCOPY 07/22/2013 UPPER GI ENDOSCOPY 07/30/2018 UPPER GI ENDOSCOPY 10/25/2021 Next Appt Details Provider Name:Joseph Lopez , 08/22/2024 11:00:00 AM, [address] [place] [address] , [place], [phone], Insurance Providers Payer Name Payer Address Payer Phone Subscriber Number Group Number Insured Name Patient Relationship to Insured Coverage Start Date Coverage End Date [facility] [address] [place] [phone] [id number] CAESAR HELLER Self - patient is the insured 4 Medical (General) History Medical History History ICD Code Denies [place],DM,CVA,Lung disease,renal dise ase Hyperlipidemia Herniated disc in back L4/L5--no surgery Arthritis Colonoscopy 2013-only a hyperplastic mary lou yp Tiny gallbladdder polyps seen on U/S 201 9 Upper endoscopy in July of 2018 revealed a small hiatal hernia and very small area of Huitron's esophagus with biopsies negative for dysplasia EGD 2021-minimnal HH, minimal intestinal metaplasia without dysplasia Surgical History Surgery Date(Month/Year) Tonsillectomy 1962
--- NOTE | 2024-08-20 13:47 | HO.ANESPROP2 ---
HPI - Anesthesia Eval Consult details Narrative: 69yo M for Upper Endoscopy and Colonoscopy PMFSH Active Problems Active Problems: All Active Problems Post herpetic neuralgia (Acute) Costochondritis (Acute) Screening for prostate cancer (Acute) Left flank pain (Acute) Osteoarthritis of right hip (Acute) Ischial bursitis (Acute) GERD (gastroesophageal reflux disease) (Acute) Huitron's esophagus (Acute) Hypercholesterolemia (Acute) Past Medical History Medical History Post herpetic neuralgia Huitron's esophagus GERD (gastroesophageal reflux disease) Hypercholesterolemia Family History Family History Mother No problems noted. Father No problems noted. 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
--- NOTE | 2024-08-22 07:24 | HO.ANESPROP2 ---
[facility] Active Problems Active Problems: All Active Problems Blood pressure check (Acute) Post herpetic neuralgia (Acute) Costochondritis (Acute) Screening for prostate cancer (Acute) Left flank pain (Acute) Osteoarthritis of right hip (Acute) Ischial bursitis (Acute) GERD (gastroesophageal reflux disease) (Acute) Huitron's esophagus (Acute) Hypercholesterolemia (Acute) Past Medical History Medical History Blood pressure check Post herpetic neuralgia Huitron's esophagus GERD (gastroesophageal reflux disease) Hypercholesterolemia Functional capacity: independent ambulation Family History Family History Mother No problems noted. Father No problems noted. Family history of problems with anesthesia: No Surgical History Surgical History Hx of colonoscopy History of esophagogastroduodenoscopy (EGD) History of tonsillectomy History of Problems with Anesthesia: No Social History Social History Housing: House Are you a primary hospice spiritual care coordinator to a significant other at home: No Do you presently have visiting nurse or other home services: No Alcohol intake: current Alcohol intake frequency: a few times a week Patient Tobacco Use Status: Never used Tobacco e-Cigarette/Vaping Use: Never Used Second Hand Smoke Exposure: Yes service: Yes Current occupational status: retired 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 Cognitive needs: No Hearing needs: No Vision needs: Yes (glasses) Meds Allergies Allergy/AdvReac Type Severity Reaction Status Date / Time No Known Allergies Allergy Verified 08/22/24 07:42 Home Medications ?Medication ?Instructions ?Recorded ?Confirmed ?Last Taken ?Type multivitamin 1 tab PO DAILY 05/24/21 08/22/24 Unknown History Exam Airway Mallampati Class: II TM Dist: >3cm Neck ROM: Full Lungs: CTA Assessment and Plan Assessment Anesthesia Assessment: Anesthesia Plan Discussed and Chart Reviewed Final Anesthetic Review Family History of Problems with Anesthesia: No History of Problems with Anesthesia: No NPO: Yes ASA Class: II Final Preanesthetic Review: Meds/Allgs Chart Reviewed, Consent Obtained/Reviewed and Anes Risks/Benef Reviewed Patient Risk: Low Procedure Risk: Low Anesthetic Plan Anesthetic Plan: MAC: Disposition: Standard PACU
[2024-08-22 07:47] VITALS: BP 132/80; PULSE 73; RESP 16; TEMP 36.7; O2SAT 98; BMI 21.4
[2024-08-22] MEDS: Lactated Ringers 1,000 ML 100 ML IVCONT (07:59)
[2024-08-22 10:08] VITALS: BP 103/69; PULSE 76; RESP 16; TEMP 36.2; O2SAT 97
--- NOTE | 2024-08-22 10:19 | PM.OP ---
Brief Operative Note Date of Service: 08/22/24 Pre-op diagnosis: Huitron's, Screening Post-op diagnosis: other (Same, Gastritis, Duodenitis, Hiatal hernia, Colon polyp) Procedure: EGD with biopsies, Colonoscopy to the cecum with cold snare polypectomy Surgeon: Joseph Lopez MD Anesthesia: MAC Was an Activity Manager used for this Procedure?: No Estimated blood loss (mL): 2.0 Pathology: other (A. Gastric antrum B. EG Junction at 40cm C. Ascending colon polyp) Condition: stable Disposition: PACU
[2024-08-22 10:23] VITALS: BP 113/82; PULSE 65; RESP 16; O2SAT 100
--- NOTE | 2024-08-22 10:36 | OP_ITS ---
DATE OF SERVICE: 08/22/2024 SURGEON: Joseph Lopez MD INDICATIONS: The patient presents for evaluation of gastroesophageal reflux, Huitron esophagus, and colorectal cancer screening. Full consent was obtained from him for this, including risks of bleeding and perforation. PREOPERATIVE DIAGNOSIS: POSTOPERATIVE DIAGNOSIS: PROCEDURE PERFORMED: Esophagogastroduodenoscopy with biopsies, and colonoscopy to the cecum with cold snare polypectomy. ESTIMATED BLOOD LOSS: COMPLICATIONS: ANESTHESIA: Monitored anesthesia care. ASSISTANTS: SPECIMENS: PREOPERATIVE DIAGNOSES: Gastroesophageal reflux, Huitron esophagus, colorectal cancer screening. POSTOPERATIVE DIAGNOSES: Gastroesophageal reflux, Huitron esophagus, colorectal cancer screening, duodenitis, gastritis, hiatal hernia, gastroesophageal reflux, rule out Huitron esophagus, colon polyp, diverticulosis, and internal hemorrhoids. DESCRIPTION OF PROCEDURE: The patient was placed in left lateral decubitus position. The Olympus videogastroscope was passed in the posterior oropharynx and upper esophagus under direct vision. The scope was passed slowly to the distal esophagus. The gastroesophageal junction appeared at 40 cm. This area was notable for some irregularity and probably some small, less than 1 cm areas of Huitron mucosa. There was no esophagitis, ulceration, nor mass. The scope entered the stomach. There was a minimal hiatal hernia. The scope was advanced to pylorus. The duodenum was cannulated to the descending portion. The duodenum including the bulb was carefully inspected. The duodenal bulb had several erosions. The scope was withdrawn back in the stomach. The gastric antrum and body also had some areas of edema and small erosions as well. There was good peristalsis. The scope was retroflexed visualizing the proximal stomach carefully, which appeared normal, without any sign of mass or ulceration. The scope was straightened. Biopsies were obtained from the gastric antrum. The scope was withdrawn back in the esophagus. Biopsies were obtained at the EG junction at 40 cm. A specimen was sent for a Cypher study as well in regard to the underlying Huitron's esophagus. Proximal to that the esophageal mucosa appeared normal. The scope was withdrawn from the patient. He was turned around for colonoscopy. The digital rectal exam revealed no abnormalities. The Olympus video pediatric colonoscope was entered into the rectum and advanced to the cecum with the assistance of abdominal wall pressure. Once in the cecum, I did identify normal-appearing cecal pouch with appendiceal orifice and a normal-appearing ileocecal valve. There was transillumination of light deep in the right lower quadrant. The scope was slowly withdrawn assessing all mucosal surfaces carefully. Preparation was excellent. In the ascending colon, was an approximately 6-8 mm flat, but raised polyp, which was removed by cold snare polypectomy and recovered by suction. The polypectomy site appeared clean, without any sign of residual polyp nor bleeding. I did not visualize any other polyps, colitis, nor angiodysplasia. There was a mild amount of sigmoid diverticulosis. In the rectum, scope was retroflexed visualizing internal hemorrhoids, but no other pathology. The rectal mucosa appeared normal. The scope was straightened and withdrawn from the patient. He tolerated both procedures well and was returned to recovery area in stable condition. IMPRESSION: 1. Small hiatal hernia, history of Huitron esophagus. 2. Erosive duodenitis. 3. Erosive gastritis. 4. Colon polyp. 5. Diverticulosis. 6. Internal hemorrhoids. PLAN: The results of the pathology and Cypher study will be checked. If the colon polyp is a tubular adenoma, I would recommend a followup coloscopy in 5 years. If it is only hyperplastic, I would recommend a followup colonoscopy in 10 years. He presently is not taking any acid suppression, but given the findings on the upper endoscopy today, I will recommend that he resume his omeprazole 20 mg daily. I also advised him to try to avoid all aspirin and NSAIDs for at least a week, but preferably long-term given the upper GI findings as well. If there is no dysplasia within the Huitron esophagus, I would recommend a repeat upper endoscopy in 3 years. MD ELBA Guthrie/LINDA / [id number] ROHINI
[2024-08-22 10:38] VITALS: BP 116/81; PULSE 61; RESP 16; TEMP 36.4; O2SAT 98
--- NOTE | 2024-08-22 14:36 | HO.POSTANES ---
Post Anesthesia Evaluation Post Anesthesia Evaluation Date of Service: 08/22/24 Vital Signs: Vital Signs Temp Pulse Resp BP Pulse Ox O2 Del Method 08/22/24 10:38 97.5 F 61 16 116/81 98 Room Air 08/22/24 10:23 65 16 113/82 100 Room Air 08/22/24 10:08 97.1 F 76 16 103/69 97 Room Air 08/22/24 07:47 98.0 F 73 16 132/80 98 Room Air Anesthesia: Monitored Mental Status: Awake Pain Control: Satisfactory Nausea/Vomiting: None Hydration: Adequate Anesthesia-Related Issues: No Anes. Related Issues
== END 2024-08-22 11:30 | disposition home or self-care (01) ==
PROVIDERS: PCP Internal Medicine; Visit Provider Internal Medicine
PROC: (CPT 45385; principal; 2024-08-22 08:30)
DX: Z12.11 Encounter for screening for malignant neoplasm of colon (principal); D12.2 Benign neoplasm of ascending colon; K57.30 Diverticulosis of large intestine without perforation or abscess without bleeding; K64.8 Other hemorrhoids; K21.9 Gastro-esophageal reflux disease without esophagitis; K22.70 Barrett's esophagus without dysplasia; K29.50 Unspecified chronic gastritis without bleeding; K29.80 Duodenitis without bleeding; K44.9 Diaphragmatic hernia without obstruction or gangrene; E78.5 Hyperlipidemia, unspecified; Z79.899 Other long term (current) drug therapy
CPT/HCPCS: 45385; 43239; 88305; 88313; 88342; J2003; J2704

== ENCOUNTER 2024-11-20 08:57 | Outpatient (AMB) | payer MEDICARE, SELFPAY ==
--- NOTE | 2024-11-20 09:15 | MHC.PC.OV ---
Vital Signs 11/20/24 09:16 Height 6 ft 1 in Weight 165 lb BMI 21.8 BP 142/88 H Blood Pressure Location Lt brachial Position Sitting Pulse 65 Pulse Source Pulse Oximeter Temp 97.1 F Temp Source Temporal Artery Scan Pulse Oximetry (%) 97 Oxygen Delivery Method Room Air Intake Visit Reasons: 6 month f/u Courtesy Car Driver Required: No Accompanied by: Self / Same As Patient Allergies No Known Allergies Allergy (Verified 11/20/24 09:18) Tobacco use date assessed: 08/21/24 Fall risk assessment: No Falls in past year Last assessed Fall Risk: 11/20/24 Dental Screening Dental Screen Date: 05/20/24 [facility] Medical History (Updated 11/20/24 @ 09:49 by Buddy Nair MD) Essential hypertension Blood pressure check Post herpetic neuralgia Huitron's esophagus GERD (gastroesophageal reflux disease) Hypercholesterolemia Surgical History (Updated 08/26/24 @ 10:18 by Nati Elias) Hx of colonoscopy (~08/22/24) History of esophagogastroduodenoscopy (EGD) (~08/22/24) History of tonsillectomy Family History Mother No problems noted. Father No problems noted. 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 1. Little interest or pleasure in doing things: not at all 2. Feeling down, depressed, or hopeless: not at all 3. Trouble falling or staying asleep, or sleeping too much: not at all 4. Feeling tired or having little energy: not at all 5. Poor appetite or overeating: not at all 6. Feeling bad about yourself - or that you are a failure or have let yourself or your family down: not at all 7. Trouble concentrating on things, such as reading the newspaper or watching television: not at all 8. Moving or speaking so slowly that other people could have noticed. Or the opposite - being so fidgety or restless that you have been moving around a lot more than usual: not at all 9. Thoughts that you would be better off or of hurting yourself in some way: not at all Total score: 0 Depression Screening Interpretation: Negative Depression Screening Done: Yes 04920 - PHQ-9 Billing: Yes Source: Developed by Drs. Joseph Morris, Sruthi Cary, León Avila and colleagues, with an educational catalino from [employer]. Thrive Questionnaire Date Thrive assessed: 11/20/24 I am a: Patient What is your living situation today?: I have a steady place to live Within the past 12 months, did the food you bought not last and you didn't have the money to get more?: Never true Within the past 12 months, did you worry whether your food would run out before you got money to buy more?: Never true Do you have trouble paying for medicines?: No Do you have trouble getting transportation to medical appointments?: No Do you have trouble paying your heating and electricity bill?: No Do you have trouble taking care of your child, family member or friend?: No Do you have trouble with day-to-day activities such as bathing, preparing meals, shopping, managing finances, etc.?: No Are you currently unemployed and looking for a job?: No Are you interested in more education?: No Please select the resources that you would like help with: None Currently or been in a relationship where the following occur: No concerns reported THRIVE Score: 0 AUDIT C Alcohol Use Questionnaire (AUDIT-C) 1. How often do you have a drink containing alcohol?: 2-3 times a week 2. How many drinks containing alcohol do you have on a typical day when you are drinking?: 1 or 2 3. How often do you have six or more drinks on one occasion?: Never Total Score: 3 SALLY-7 AMB Questionnaire SALLY-7 Date SALLY - 7 assessed: 11/20/24 Feeling nervous, anxious, or on edge: 0 = Not at all Not being able to stop or control worryin = Not at all Worrying too much about different things: 0 = Not at all Trouble relaxin = Not at all Being so restless that it is hard to sit still: 0 = Not at all Becoming easily annoyed or irritable: 0 = Not at all Feeling afraid as if something awful might happen: 0 = Not at all Total SALLY-7 score (0-4 normal; 5-9 mild; 10-14 moderate; 15-21 severe): 0 Source: Developed by Drs. Joseph Morris, Sruthi Cary, León Avila and colleagues, with an educational catalino from [employer]. SALLY-7 Assessment Billing SALLY-7 Assessment Tool: SALLY-7 Assessment 36274 Physical exam (Primary Care) Vital Signs: Last Vital Signs Temp 97.1 F 11/20/24 09:16 Pulse 65 11/20/24 09:16 BP 142/88 H 11/20/24 09:16 Pulse Ox 97 11/20/24 09:16 Oxygen Delivery Method Room Air 11/20/24 09:16 BMI result Body Mass Index 21.8 Tobacco/Smoking Status: Tobacco use Status Tobacco use date assessed 08/21/24 11/20/24 09:19 Patient Tobacco Use Status Never used Tobacco 11/20/24 09:19 e-Cigarette/Vaping Use Never Used 11/20/24 09:19 PHQ-9: PHQ-9 Score PHQ-9: Total score 0 11/20/24 09:49 Depression Screening Interpretation: Negative Thrive Assessment: Date of Thrive Assessment Date Thrive assessed 11/20/24 11/20/24 09:19 Currently or been in a relationship where the following occur: No concerns reported Coding Level of Care Code Est Pt Level 4 (75096) Complex EM visit Add On G2211 Diagnoses Hypercholesterolemia E78.00 Essential hypertension I10 Additional Codes SALLY-7 Assessment Billing - SALLY-7 Assessment Tool: SALLY-7 Assessment 06939 ([id number]) PHQ-9 - 45734 - PHQ-9 Billing: Yes ([id number]) Assessment & Plan Assessment & Plan (1) Hypercholesterolemia: Comment: Continue current medications. Code(s): E78.00 - Pure hypercholesterolemia, unspecified Category: Medical Plan: BW ordered. based on the results, statin dosage will be changed. (2) Essential hypertension: Code(s): I10 - Essential (primary) hypertension Category: Medical Plan: Patient reluctant to take meds. risks explained. Plan History of Present Illness - The patient is a 69-year-old male presenting for management of hypertension and hyperlipidemia, and to discuss dermatological concerns. - Hypertension: Reports blood pressure readings of 142/88 mmHg without symptoms like dizziness or headaches. - Currently not on antihypertensive medication but advised to consider a low-dose medication to prevent cardiovascular stress. - Hyperlipidemia: On simvastatin for cholesterol management. - Dermatological concerns: History of benign skin lesions with a follow-up dermatology appointment scheduled for June next year. Social History - Employment: The patient is retired but works three to four days a week during the summer. - Family Status: Recently experienced the passing of his [id number] and is involved in managing her estate. - Travel: Plans to travel with his , who is off during the summer. Review of Systems - Cardiovascular: Reports stable blood pressure readings, denies chest pain or palpitations. - Gastrointestinal: Denies abdominal pain or discomfort. Physical Exam General: Cooperative and healthy appearing Nutritional Appearance: Well nourished Orientation/consciousness: Patient oriented x3 Limitations: No limitations Head: Normal to inspection General: Appearance normal, both eyes and all related structures Neck: Normal visual inspection Chest: Normal palpation of entire chest wall Respiratory: No pain to the stomach. Every now and then, the patient gets a pain that has been present for years, but it has been investigated multiple times with no findings. ormal respiratory effort Neurology: Patient oriented x3. Vision is good, and the patient is driving well. Results Plan 1. Hypertension - Consider starting a low-dose antihypertensive medication to manage blood pressure and reduce cardiovascular risk. - Monitor blood pressure regularly and return if readings consistently exceed 140/80 mmHg. 2. Hyperlipidemia - Continue simvastatin for cholesterol management. 3. Dermatological Concerns - Maintain scheduled dermatology appointment in June for evaluation of benign skin lesions. Discussion Notes I discussed with the patient the importance of managing blood pressure to prevent cardiovascular complications. We talked about starting a low-dose antihypertensive medication and the benefits of regular monitoring. I also advised continuing simvastatin for cholesterol management. Regarding dermatological concerns, I recommended keeping the scheduled appointment for further evaluation. Patient Instructions - Monitor your blood pressure regularly and record the readings. - Continue taking simvastatin as prescribed. - Attend your dermatology appointment in June. Orders: Orders Basic Metabolic Panel Today E78.00 - Pure hypercholesterolemia, unspecified, I10 - Essential (primary) hypertension Lipid Panel Today E78.00 - Pure hypercholesterolemia, unspecified, I10 - Essential (primary) hypertension Thyroid Stimulating Hormone Today E78.00 - Pure hypercholesterolemia, unspecified, I10 - Essential (primary) hypertension UA and rflx microscopic Today E78.00 - Pure hypercholesterolemia, unspecified, I10 - Essential (primary) hypertension Complete Blood Count no Diff Today E78.00 - Pure hypercholesterolemia, unspecified, I10 - Essential (primary) hypertension Liver Panel Today E78.00 - Pure hypercholesterolemia, unspecified, I10 - Essential (primary) hypertension
[2024-11-20 09:16] VITALS: BP 142/88; PULSE 65; TEMP 36.2; O2SAT 97; BMI 21.8
--- OUTSIDE RECORDS SUMMARY | 2024-11-20 09:16 | XMS_ITS | Clinical Summary ---
Author Organization [facility] ity Address [address] [place] [address] Care Team Providers Care Truck Cleaner Name Role Phone Unavailable Primary Care Provider [...] Vaccines (1 of 2) 2007 COVID-19 Vaccine (1 - 2023-2 5 season) 2024 Influenza Vaccine (#1) 2025 RSV Immunization Adult Patie nts (1 [...]
--- OUTSIDE RECORDS SUMMARY | 2024-11-20 09:16 | XMS_ITS | Patient Health Record ---
Author Organization [facility] Address [address] [place] [address] Care Team Providers Care Roll Capper Name Role Phone MARCUS, KARTIK Primary Care Provider Joseph Donis Unavailable [phone] Allergies No Known Allergies Results Component Value Reference Range Notes Pathology (Not yet reviewed by provider) Interpretation: Performing Lab:[facility], [address] [place] [phone] Notes/Report: Reason For Referral No Information Medications Medication SIG (Take, Route, Fr equency, Duration) Notes Start Date End Date Status Multi Vitamin/Minerals Active Simvastatin 20 MG 1 tablet in the even ing Orally Once a day Active Omeprazole 20 MG 1 every morning Oral ly Once a day for 30 days 08/22/2024 Active Immunizations Vaccine Route Administration Date Status Comme nts Influenza Unknown 01/12/2021 Administered Influenza Unknown 07/30/2018 Refused Problems Problem Type SNOMED Code ICD Code Onset Dates Problem Status W/U Status Risk Notes Problem Colon cancer screening (495362929) Colon cancer screening (Z12.11) Active confirmed Problem 572063011 Left upper quadrant pain (R10.12) Active confirmed Problem Gastroesophageal reflux disease (283123945) GERD (gastroesopha geal reflux disease) (K21.9) Active confirmed Problem Huitron esophagus (660610891) 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) Active confirmed Problem Huitron's esophagus (910835356) Huitron''s esophagus without dysplasia (K22.70) Active confirmed Vital Signs Blood pressure diastolic 11 mm Hg 08/15/2024 Height 71 in 08/15/2024 Blood pressure systolic 111 mm Hg 08/15/2024 Weight 169 lbs 08/15/2024 BMI 23.57 kg/m2 08/15/2024 Procedures Procedure Date Ordered Date Performed Result Body Sit e UPPER GI ENDOSCOPY 08/15/2024 N/A COLONOSCOPY 08/15/2024 N/A Encounters Encounter Location Date Provider Diagnosis [facility] Outpatient [address] [place] [id number] 08/22/2024 Joseph Lopez Colon cancer screeni ng Z12.11 ; Colon polyps K63.5 ; Diverticulosis of large intestine without perforation or abscess without bleeding K57.30 ; Other hemorrhoids K64.8 ; Gastritis, erosive K29.60 ; Hiatal hernia K44.9 ; Duodenitis K29.80 and H/O gastroesophageal reflux (GERD) Z87.19 [facility] [address] [facility] [address] [place] [phone] 08/15/2024 Joseph Lopez GERD (gastroesophage al reflux disease) K21.9 ; Huitron''s esophagus without dysplasia K22.70 and Colon cancer screening Z12.11 [facility] [address] [place] [phone] 08/21/2024 Joseph Lopez [facility] [address] [phone] 08/22/2024 Joseph Lopez Assessments Encounter Date Diagnosis (ICD Code) Assessment Notes Treatment Notes Treatment Clinical Notes Section Notes 08/22/2024 Colon cancer screening (ICD-10 - Z12.11) 08/22/2024 Colon polyps (ICD-10 - K63.5) 08/15/2024 GERD (gastroesophageal reflux disease) (ICD-10 - K21.9) Overall, Renato [...] to keep you advised of his progress.. 08/22/2024 Diverticulosis of large intestine without perforation or abscess without bleeding (ICD-10 - K57.30) 08/15/2024 Colon cancer screening (ICD-10 - Z12.11) [...] to keep you advised of his progress.. 08/22/2024 Other hemorrhoids (ICD-10 - K64.8) 08/22/2024 Gastritis, erosive (ICD-10 - K29.60) 08/22/2024 Hiatal hernia (ICD-10 - K44.9) 08/22/2024 Duodenitis (ICD-10 - K29.80) 08/22/2024 H/O gastroesophageal reflux (GERD) (ICD-10 - Z87.19) Plan Of Treatment Pending Test Test Name Order Date UPPER GI ENDOSCOPY 08/15/2024 COLONOSCOPY 08/15/2024 Pathology 08/22/2024 Future Test Test Name Order Date COLONOSCOPY 07/22/2013 UPPER GI ENDOSCOPY 07/30/2018 UPPER GI ENDOSCOPY 10/25/2021 Insurance Providers Payer Name Payer Address Payer Phone Subscriber Number Group Number Insured Name Patient Relationship to Insured Coverage Start Date Coverage End Date [facility] [address] [place] [address] [id number] ARRONCAESAR BRODERICK Self - patient is the insured 4 Medical (General) History Medical History History ICD Code Denies MD,DM,CVA,Lung disease,renal dise ase Hyperlipidemia Herniated disc in [...]
--- OUTSIDE RECORDS SUMMARY | 2024-11-20 09:16 | XMS_ITS | Clinical Summary ---
Author Organization [facility] Address [address] [place] [address] Care Team Providers Care Geospatial Developer Name Role Phone System, Provider Not In Primary Care Provider Un available Allergies No known active allergies Medications cephalexin (KEFLEX) 500 MG capsule Take 1 capsule (500 mg total) by mouth 2 (two) times a day. 10 capsule 01/04/2021 Active Social History Tobacco Use Types Packs/Day Years Used Date Smoking Tobacco: Never Smokeless Tobacco: Never Sex and Gender Information Value Date Recorded Sex Assigned at Not on file Legal Sex Male 12:34 PM EDT Gender Identity Not on file Sexual Orientation Not on file Last Filed Vital Signs Vital Sign Reading Time Taken Comments Blood Pressure 139/95 01/04/2021 12:45 PM EDT Pulse 84 01/04/2021 12:45 PM EDT Temperature 36.8 C (98.2 F) 01/04/2021 12:45 PM EDT Respiratory Rate 18 01/04/2021 12:45 PM EDT [...] Zoster (Shingles) Vaccine (1 of 2) 2007 COVID-19 Vaccine ( - 2023-2 5 season) 2024 Influenza Vaccine 12/12/2024 RSV Vaccine 60 years and old er and Patients (1 - 1-dose 75+ series) 2032 Hepatitis B Vaccines Aged Out No long er eligible based on patient's age to complete this topic Insurance [facility] [employer] Care Teams Geospatial Developer Relationship Specialty Start Date End Date System, Provider Not In PCP - General 01/04/21
== END 2024-11-20 09:49 | disposition home or self-care (01) ==
LOC: HO.HMCH 08:57
PROVIDERS: PCP Internal Medicine; Visit Provider Internal Medicine
DX: E78.00 Pure hypercholesterolemia, unspecified (principal); I10 Essential (primary) hypertension

== ENCOUNTER → 2024-11-20 08:57 | Outpatient (BNVA) | payer MEDICARE, SELFPAY | PROVIDERS: PCP Internal Medicine; Visit Provider Internal Medicine | DX: I10 Essential (primary) hypertension (principal); E78.00 Pure hypercholesterolemia, unspecified | CPT/HCPCS: 96127; 99212 ==

== ENCOUNTER 2024-12-20 08:17 | Outpatient (REF) | payer MEDICARE, SELFPAY ==
--- OUTSIDE RECORDS SUMMARY | 2024-12-20 08:19 | XMS_ITS | Patient Health Record ---
Author Organization [facility] Address [address] [place] [address] Care Team Providers Care Ware Server Name Role Phone MARCUS, KARTIK Primary Care Provider Joseph Donis Unavailable [phone] Allergies No Known Allergies Results Component Value Reference Range Notes Pathology (Not yet reviewed by provider) Interpretation: Performing Lab:[facility], [address] [place] [phone] Notes/Report: Reason For Referral No Information Medications [...] Status Risk Notes Problem Colon cancer screening (624235644) Colon cancer screening (Z12.11) Active confirmed Problem 020585944 Left upper quadrant pain (R10.12) Active confirmed Problem Gastroesophageal reflux disease (957146804) GERD (gastroesopha geal reflux disease) (K21.9) Active confirmed Problem Huitron esophagus (373848779) 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) Active confirmed Problem Huitron's esophagus (926654493) Huitron''s esophagus without dysplasia (K22.70) Active confirmed Vital Signs Blood pressure diastolic 11 mm Hg 08/15/2024 Height 71 in 08/15/2024 Blood pressure systolic 111 mm Hg 08/15/2024 Weight 169 lbs 08/15/2024 BMI 23.57 kg/m2 08/15/2024 Procedures Procedure Date Ordered Date Performed Result Body Sit e UPPER GI ENDOSCOPY 08/15/2024 N/A COLONOSCOPY 08/15/2024 N/A Encounters Encounter Location Date Provider Diagnosis [facility] Outpatient [address] [place] [id number] 08/22/2024 Joseph Lopez Colon cancer screeni ng Z12.11 ; Colon polyps K63.5 ; Diverticulosis of large intestine without perforation or abscess without bleeding K57.30 ; Other hemorrhoids K64.8 ; Gastritis, erosive K29.60 ; Hiatal hernia K44.9 ; Duodenitis K29.80 and H/O gastroesophageal reflux (GERD) Z87.19 [facility] [address] [facility] [address] [place] [phone] 08/15/2024 Joseph Lopez GERD (gastroesophage al reflux disease) K21.9 ; Huitron''s esophagus without dysplasia K22.70 and Colon cancer screening Z12.11 [facility] [address] [place] [phone] 08/21/2024 Joseph Lopez [facility] [address] [phone] 08/22/2024 Joseph Lopez Assessments Encounter Date Diagnosis [...] Insured Coverage Start Date Coverage End Date [facility] [address] [place] [phone] [id number] ARRONCAESAR BRODERICK Self - patient is the insured 4 Medical (General) History Medical History History ICD Code Denies NM,DM,CVA,Lung disease,renal dise ase Hyperlipidemia Herniated disc in [...]
--- OUTSIDE RECORDS SUMMARY | 2024-12-20 08:20 | XMS_ITS | Clinical Summary ---
Author Organization [facility] Address [address] [facility] [address] [place] [phone] Phone Care Team Providers Care Glass Inserter Name Role Phone Buddy Nair MD Primary Care Provid er Allergies No known active allergies Medications naproxen (NAPROSYN) 500 MG tablet Take 1 tablet (500 mg total) by mouth 2 (two) times a day with meals for 14 days. 28 tablet 12/02/2020 Active Active Problems Problem Noted Date Diagnosed Date Huitron esophagus 10/09/2023 Immunizations No known immunizations Social History Tobacco Use Types Packs/Day Years Used Date Smoking Tobacco: Never Smokeless Tobacco: Never Tobacco Cessation:Counseling Given: Not Answered Education Answer Date Recorded Are you interested in more education? Not on niharika e 09/09/2022 Are you concerned about learning? Not on file 09/09/2022 No 09/09/2022 No 09/09/2022 Digital Access Answer Date Recorded No 10/05/2022 No 10/05/2022 Reliable internet access at home? Not on file 10/05/2022 Device with a working camera? Not on file Sex and Gender Information Value Date Recorded Sex Assigned at Not on file Legal Sex Male 8:05 AM EDT Gender Identity Not on file Sexual Orientation Not on file Last Filed Vital Signs Vital Sign Reading Time Taken Comments Blood Pressure 142/86 10/09/2023 6:20 PM EDT Pulse 66 10/09/2023 6:20 PM EDT Temperature 36.7 C (98 F) 10/09/2023 6:20 PM EDT Respiratory Rate 16 10/09/2023 6:20 PM EDT Oxygen Saturation 98% 10/09/2023 6:20 PM EDT Inhaled Oxygen Concentration - - Weight 68 kg (150 lb) 12/02/2020 8:45 AM EDT per pt Height - - Body Mass Index - - Plan of Treatment Health Maintenance Due Date Last Done Comments LIPID PANEL 1957 DEPRESSION SCREENING 1969 HEPATITIS C SCREENING 1975 COLOGUARD 2002 COLONOSCOPY 2002 COLORECTAL CANCER SCREENING 2002 FIT TEST 2002 FOBT 2002 SIGMOIDOSCOPY 2002 VIRTUAL COLONOSCOPY 2002 PNEUMOCOCCAL VACCINES (50+ years) (1 of 1 - PCV) 2007 ZOSTER VACCINES (1 of 2) 2007 COVID-19 VACCINE ( season) 2024 04/08/2022, 05/16/2021, 08/07/2020, Additional history exists Adult Td,Tdap Booster 09/29/2030 09/29/2020, 017 RSV VACCINE (1 - 1-dose 75+ series) 2032 SMOKING STATUS SCREENING (Once After 26 Yrs) Completed 10/09/2023 HEPATITIS A VACCINES Aged Out No long er eligible based on patient's age to complete this topic HIB VACCINES Aged Out No longer eligi ble based on patient's age to complete this topic MENINGOCOCCAL VACCINES (ACWY) Aged Out No longer eligible based on patient's age to complete this topic MENINGOCOCCAL VACCINES (B) Aged Out N o longer eligible based on patient's age to complete this topic Medical Devices Not on file Insurance [facility] [employer] [place] [employer] POS PPO REPLACEMENT [facility] HMO [employer] [place] [employer] POS PPO REPLACEMENT [facility] [place] [address] [place] [address] HMO [facility] Address: [address] [place], [place] [address]O [employer] [place] MED[employer] POS PPO REPLACEMENT [facility] [address]MO [address] [place], [place] [address] Member Subscriber Plan / Payer (Ef fective 2020-Present) Name:Mayito Coates Relation to Subscriber:Spouse Name:ARRONCLAUDINEASHLI Date of :1959 Address: [address] [place] [address] Payer ID:Not on file Type:O Address: [address] [id number] [employer] [place] MED[employer] POS [place] [address] [place] [address] HMO [employer] [place] [employer] POS PPO REPLACEMENT HMO [facility] Address: [address] [place] [address] [employer] [place] MEDIC[employer] POS PPO REPLACEMENT Care Teams Glass Inserter Relationship Specialty Start Date End Date Buddy Nair MD [address] [place] [address] PCP - General Internal Medicine 10/09/23 Additional Source Comments The information contained in this document represents components of the legal health record. It is not the complete legal health record.[facility]
--- OUTSIDE RECORDS SUMMARY | 2024-12-20 08:20 | XMS_ITS | Clinical Summary ---
Author Organization [facility] ity Address [address] [place] [address] Care Team Providers Care Audit Clerk Name Role Phone Unavailable Primary Care Provider [...] Vaccine (1 - 2023-2 5 season) 2024 Depression Screening 05/14/2024 Influenza Vaccine (#1) 2025 RSV Immunization Adult [...]
[2024-12-20 08:37] LABS: Hematocrit 44.7 % (42.0-52.0); Hemoglobin 14.9 g/dl (14.0-18.0); Mean Corpuscular HGB Conc 33.3 g/dl (31.0-36.0); Mean Corpuscular Hemoglobin 31.2 pg (27.0-33.0); Mean Corpuscular Volume 93.7 fL (80.0-98.0); NRBC Abs Auto 0.000 X10*3/uL (0.0-0.012); NRBC Pct Auto 0.0 /100WBC (0.0-0.2); Platelet Count 238 X10*3/uL (160-400); Red Blood Count 4.77 X10*6/uL (4.60-5.80); White Blood Count 5.2 X10*3/uL (4.8-10.8)
[2024-12-20 09:20] LABS: Alanine Aminotransferase 33 U/L (0-40); Albumin Level 4.2 g/dL (3.5-5.0); Alkaline Phosphatase 72 U/L (39-117); Anion Gap 9 (12-20); Aspartate Amino Transferase 34 U/L (5-37); Blood Urea Nitrogen 24 mg/dL (9-16); Calcium 9.0 mg/dL (8.4-10.2); Carbon Dioxide 31 mmol/L (22-29); Chloride 107 mmol/L (96-108); Cholesterol 166 mg/dL (<200); Estimated Glomerular Filt Rate > 60; HDL Cholesterol 68 mg/dL (>40); Potassium 4.2 mmol/L (3.3-5.1); Sodium 143 mmol/L (135-145); Thyroid Stimulating Hormone 1.12 uIU/mL (0.32-4.0); Total Protein 6.4 g/dL (6.5-8.0); Triglycerides 49 mg/dL (<150)
== END 2024-12-20 08:18 | disposition home or self-care (01) ==
LOC: HO.LAB 08:17
PROVIDERS: PCP Internal Medicine; Visit Provider Internal Medicine
DX: I10 Essential (primary) hypertension (principal); E78.00 Pure hypercholesterolemia, unspecified
CPT/HCPCS: 36415; 80048; 80061; 80076; 84443; 85027

== ENCOUNTER 2024-12-22 09:08 | Outpatient (REF) | payer MEDICARE, SELFPAY ==
[2024-12-22 09:22] LABS: Appearance Urine Clear; Glucose Urine UA Negative (Negative); PH 5.5 (5.0-9.0); Specific Gravity - Urine 1.025 (1.005-1.025)
--- OUTSIDE RECORDS SUMMARY | 2024-12-22 09:33 | XMS_ITS | Clinical Summary ---
Author Organization [facility] Address [address] [place] [address] Care Team Providers Care Television Receiver Analyzer Name Role Phone System, Provider Not In [...] patient's age to complete this topic Insurance [facility] [employer] Care Teams Television Receiver Analyzer Relationship Specialty Start Date End Date System, Provider Not In PCP - General 01/04/21
--- OUTSIDE RECORDS SUMMARY | 2024-12-22 09:33 | XMS_ITS | Patient Health Record ---
Author Organization [facility] Address [address] [place] [address] Care Team Providers Care Corporate Consultant Name Role Phone MARCUS, KARTIK Primary Care Provider Joseph Donis Unavailable [phone] Allergies No Known Allergies Results Component Value Reference Range Notes Pathology (Not yet reviewed by provider) Interpretation: Performing Lab:[facility], [address] [place] [id number] Notes/Report: Reason For Referral No Information Medications [...] Status Risk Notes Problem Colon cancer screening (453688259) Colon cancer screening (Z12.11) Active confirmed Problem 529469927 Left upper quadrant pain (R10.12) Active confirmed Problem Gastroesophageal reflux disease (377995470) GERD (gastroesopha geal reflux disease) (K21.9) Active confirmed Problem Huitron esophagus (199431890) 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) Active confirmed Problem Huitron's esophagus (775886817) Huitron''s esophagus without dysplasia (K22.70) Active confirmed Vital Signs Blood pressure diastolic 11 mm Hg 08/15/2024 Height 71 in 08/15/2024 Blood pressure systolic 111 mm Hg 08/15/2024 Weight 169 lbs 08/15/2024 BMI 23.57 kg/m2 08/15/2024 Procedures Procedure Date Ordered Date Performed Result Body Sit e UPPER GI ENDOSCOPY 08/15/2024 N/A COLONOSCOPY 08/15/2024 N/A Encounters Encounter Location Date Provider Diagnosis [facility] [address] [place] [id number] 08/22/2024 Joseph Lopez Colon cancer screeni ng Z12.11 ; Colon polyps K63.5 ; Diverticulosis of large intestine without perforation or abscess without bleeding K57.30 ; Other hemorrhoids K64.8 ; Gastritis, erosive K29.60 ; Hiatal hernia K44.9 ; Duodenitis K29.80 and H/O gastroesophageal reflux (GERD) Z87.19 [facility] [address] [facility] [address] [place] [phone] 08/15/2024 Joseph Lopez GERD (gastroesophage al reflux disease) K21.9 ; Huitron''s esophagus without dysplasia K22.70 and Colon cancer screening Z12.11 [facility] [address] [place] [phone] 08/21/2024 Joseph Lopez [facility] [address] [phone] 08/22/2024 Joseph Lopez Assessments Encounter Date Diagnosis [...] will be done with monitored anesthesia care. Renaot was very comfortable with this plan. Thank [...] Insured Coverage Start Date Coverage End Date [facility] [address] [place] [address] [phone] [id number] ARRONCAESAR BRODERICK Self - patient is the insured 4 Medical (General) History Medical History History ICD Code Denies NE,DM,CVA,Lung disease,renal dise ase Hyperlipidemia Herniated disc in [...]
--- OUTSIDE RECORDS SUMMARY | 2024-12-22 09:34 | XMS_ITS | Clinical Summary ---
Author Organization [facility]erg[facility] Address [address] [facility] [address] [place] [id number] Phone Care Team Providers Care Legal Analyst Name Role Phone Buddy Nair MD Primary [...] topic Medical Devices Not on file Insurance [facility] [employer] [place] [employer] POS PPO REPLACEMENT [facility] [employer] [place] [employer] POS PPO REPLACEMENT [facility] [place] [address] [place] [address] [facility] Address: [address] [place], [place] [address] [employer] [place] [employer] POS PPO REPLACEMENT [facility] [address] [place], [place] [address] Member Subscriber Plan / Payer (Ef fective 2020-Present) Name:Mayito Coates Relation to Subscriber:Spouse Name:ARRONCLAUDINEASHLI Date of :1959 Address: [address] [place] [id number] Payer ID:Not on file Type:O Address: [address] [id number] [employer] [place] [employer] POS [place]PO [place] [address] [place] [address] [employer]MO [employer] [place] [employer] POS PPO REPLACEMENT [facility] Address: [address] [place] [address] [employer] [place] [employer] POS PPO REPLACEMENT Care Teams Legal Analyst Relationship Specialty Start Date End Date Buddy Nair MD [address] [place] [address] PCP - General Internal Medicine 10/09/23 Additional Source Comments The information contained in this document represents components of the legal health record. It is not the complete legal health record.[facility]
--- OUTSIDE RECORDS SUMMARY | 2024-12-22 09:34 | XMS_ITS | Clinical Summary ---
Author Organization [facility] Address [address] [place] [address] Care Team Providers Care Doughnut Icer Machine Name Role Phone Unavailable Primary Care Provider [...]
== END 2024-12-22 09:09 | disposition home or self-care (01) ==
LOC: HO.LNP 09:08
PROVIDERS: Visit Provider Internal Medicine
DX: I10 Essential (primary) hypertension (principal); E78.00 Pure hypercholesterolemia, unspecified
CPT/HCPCS: 81003